=== PATIENT | male | born 1975 | race African-American/Black ===

== ENCOUNTER 2024-12-10 09:19 | Emergency (ER) | payer OTHER ==
--- OUTSIDE RECORDS SUMMARY | 2024-12-10 09:29 | XMS REPORT | Continuity of Care Document ---
Author Name Unknown Address [address] [place] [address] [facility] Address [address] [place] [address] Care Team Providers Care Academic Director Name Role Phone PCP, PATIENT DOES NOT HAVE A Primary Care Physic monae Unavailable Iheme, Nayan U Attending Clinician Unavailable Mechelle Heredia Attending Clinician UnavailBuck Joseph Attending Clinician UnavailTED Sebastian Attending Clinician UnavailLORENA Wasserman Attending Clinician Unavailable LUIGI TOBAR Attending Clinician Unavailable Marleen Navarro Attending Clinician [phone] Luigi oTbar MD Attending Clinician [phone] LARA RASCON Attending Clinician Unavailable Lara Rascon NP Attending Clinician [phone] Stewart RN, Chriss Attending Clinician Unavailab le Only, Ang Db Test Attending Clinician UnavailSylvie Celestin Attending Clinician [phone] SYLVIE HARRIS Attending Clinician Unavailable MARY ELLEN, K PEG Attending Clinician Unavailable Doctor Unassigned, Levasy Attending Clinician U keishaailable DONAVAN RAI Attending Clinician Unavailable Evelin Lane DO Attending Clinician [phone] Donavan Graf Attending Clinician [phone] Martin NORIEGA, Ashley Attending Clinician [phone] ASHLEY SALAZAR Attending Clinician Unavailable Fritz FIGUEROA, Diana Mena Attending Clinician Unavailab JADEN Dogulass Attending Clinician UnavailJaden Deleon Attending Clinician [phone] Olvin Persaud MD Attending Clinician [phone] OLVIN PERSAUD Attending Clinician Unavailable Jacqueline Barahona Admitting Clinician Unapriya mercado Physician, No Primary or Family Admitting Clinic monae Unavailable Buck Howard Admitting Clinician UnavailLUIGI Bethea Admitting Clinician Unavailable Amadou NORIEGA, Luigi Admitting Clinician [phone] OLVIN PERSAUD Admitting Clinician Unavailable Payers Payer Name Policy Type Policy Number Effective Date Expirati on Date Source [id number] 2021 00:00:00 Problems Condition Name Condition Details Condition Category Status Onset Date Resolution Date Last Treatment Date Treating Clinician Comments Source Chest pain, unspecifie d type Chest pain, unspecifie d type Disease Active 06-08 00:00: 00 [facility] Morbid obesity with body mass index of 40.0-49.9 Morbid obesity with body mass index of 40.0-49.9 Disease Active 06-08 00:00: 00 [facility] Essential hypertensi on, benign Essential hypertensi on, benign Disease Active 05-27 00:00: 00 [facility] Tobacco abuse Tobacco abuse Disease Active 05-27 00:00: 00 [facility] Allergies, Adverse Reactions, Alerts Allergy Name Allergy Type Status Severity Reaction(s) Onset Date Inactive Date Treating Clinician Comments Source No Known Allergie s DA Active U 05-28 00:00: 00 [facility] No Known Allergie s DA Active U 3-04 00:00: 00 [facility] NO KNOWN ALLERGIE S Drug Class Active [facility] Social History Social Habit Start Date Stop Date Quantity Comments Source History of tobacco use Passive smoker [facility] Alcohol intake 2022-06-09 00:00:00 2022-06-09 00:00:00 Ex-drinker (finding) [facility] Exposure to SARS-CoV-2 (event) 2022-05-29 00:00:00 2022-06-08 15:36:00 Not sure [facility] Tobacco use and exposure 2022-06-08 00:00:00 2022-06-08 00:00:00 Smokeless tobacco non-user [facility] Tobacco Comment 2022-06-08 00:00:00 2022-06-08 00:00:00 1 ppd [facility] Sex Assigned At 1975 00:00:00 1975 00:00:00 [facility] Smoking Status Start Date Stop Date Source Smokes tobacco daily 2022-06-08 00:00:00 [facility] Medications Ordered Medication Name Filled Medication Name Start Date Stop Date Current Medication? Ordering Clinician Indication Dosage Frequency Signature (SIG) Comments Components Source atorvastati n (LIPITOR) tablet 40 mg 06-10 02:00: 00 Yes 40mg 40 mg, Oral, QHS, First dose on Wed06/09/22 at 2100, Until Discontinu ed, Routine [facility] hydroCHLORO thiazide 25 mg tablet 06-10 00:00: 00 07-11 04:59 :00 No [id number] 25mg Take 1 tablet by mouth in the morning for 30 days. [facility] metoprolol succinate XL 25 mg 24 hr tablet 06-10 00:00: 00 07-11 04:59 :00 No [id number] 25mg Take 1 tablet by mouth in the morning for 30 days. [facility] sulfur hexafluorid e microsphr (LUMASON) injection 5 mL 06-09 16:15: 00 06-09 16:15 :00 No [id number] 5mL 5 mL, Intravenou s, ONCE, 1 dose, On Wed06/09/22 at 1115, Routine
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 Restricted medication : LORENA PRESTON [facility] enoxaparin (LOVENOX) injection 40 mg 06-09 14:00: 00 Yes 40mg 40 mg, Subcutaneo us, DAILY, First dose on Wed06/09/22 at 0900, Until Discontinu ed, Routine [facility] metoprolol succinate XL (TOPROL XL) tablet 25 mg 06-09 13:15: 00 Yes 25mg 25 mg, Oral, DAILY, First dose on Wed06/09/22 at 0815, Until Discontinu ed, Routine [facility] hydroCHLORO thiazide (ESIDRIX) tablet 25 mg 06-09 05:00: 00 Yes 25mg 25 mg, Oral, DAILY, First dose on Wed06/09/22 at 0000, Until Discontinu ed, Routine [facility] amLODIPine (NORVASC) tablet 5 mg 06-09 05:00: 00 Yes 5mg 5 mg, Oral, BID, First dose on Wed06/09/22 at 0000, Until Discontinu ed, Routine [facility] nitroglycer in (NITROSTAT) sublingual tablet 0.4 mg 06-09 03:21: 52 Yes .4mg 0.4 mg, Sublingual , Q5MIN PRN, Starting on Wed06/08/22 at 2221, Until Discontinu ed, Routine, Chest pain [facility] ondansetron (ZOFRAN (PF)) injection 4 mg 06-09 03:19: 34 Yes 4mg 4 mg, Slow IV Push, Q6HPRN, Starting on Wed06/08/22 at 2219, Until Discontinu ed, Routine, Nausea and Vomiting (N/V) [facility] morpHINE (4 mg/mL) injection 4 mg 06-09 03:19: 31 06-10 03:18 :31 No 4mg 4 mg, Slow IV Push, Q4HPRN, Starting on Wed06/08/22 at 2219, Until Wed06/09/22 at 2218, Routine, Pain (scale 7-10) [facility] HYDROcodone -acetaminop hen (NORCO 5) 5-325 mg tablet 1 tablet 06-09 03:19: 29 06-11 03:18 :29 No 1{tbl} 1 tablet, Oral, Q6HPRN, Starting on Wed06/08/22 at 2219, Until Wed06/10/22 at 2218, Routine, Pain (scale 4-6) [facility] acetaminoph en (TYLENOL) tablet 650 mg 06-09 03:19: 27 Yes 650mg 650 mg, Oral, Q6HPRN, Starting on Wed06/08/22 at 2219, Until Discontinu ed, Routine, Pain (scale 1-3) [facility] hydralAZINE (APRESOLINE ) injection 10 mg 06-09 01:15: 00 06-09 01:11 :00 No 10mg 10 mg, Slow IV Push, ONCE, 1 dose, On Wed06/08/22 at 2015, CHON [facility] diphenhydrA MINE (BENADRYL) injection 25 mg 06-09 00:45: 00 06-08 23:57 :00 No 25mg 25 mg, Slow IV Push, ONCE, 1 dose, On Wed06/08/22 at 1945, STAT [facility] metoclopram alex HCl (REGLAN) injection 10 mg 06-09 00:45: 00 06-08 23:57 :00 No 10mg 10 mg, Slow IV Push, ONCE, 1 dose, On Wed06/08/22 at 1945, CHON [facility] nitroglycer in 0.4 mg sublingual tablet 06-09 00:00: [id number] 1 tablet under the tongue every 5 (five) minutes as needed for Chest pain. [facility] amLODIPine 5 mg tablet 06-09 00:00: 00 2022- 09-30 04:59 :00 No [id number] 5mg Take 1 tablet by mouth in the morning and 1 tablet in the evening. Do all this for 30 days. [facility] atorvastati n 40 mg tablet 06-09 00:00: 00 07-10 04:59 :00 No [id number] 40mg Take 1 tablet by mouth at bedtime for 30 days. [facility] maalox:diph enhydrAMINE :lidocaine 2 % viscous 1:1:1 (FIRST-MOUT HWASH BLM) oral suspension 15 mL 06-08 23:15: 00 06-08 22:36 :00 No 15mL 15 mL, Oral (Swish & Swallow), ONCE, 1 dose, On Wed06/08/22 at 1815, Routine [facility] ondansetron (ZOFRAN (PF)) injection 4 mg 06-08 23:15: 00 06-08 22:20 :00 No 4mg 4 mg, Slow IV Push, ONCE, 1 dose, On Wed06/08/22 at 1815, CHON [facility] aspirin chewable tablet 324 mg 06-08 22:45: 00 06-08 21:44 :00 No 324mg 324 mg, Oral, ONCE, 1 dose, On Wed06/08/22 at 1745, Routine [facility] famotidine (PEPCID (PF)) injection 20 mg 06-08 22:15: 00 06-08 22:21 :00 No 20mg 20 mg, Slow IV Push, ONCE, 1 dose, On Wed06/08/22 at 1715, CHON [facility] hydralAZINE (APRESOLINE ) injection 10 mg 06-08 22:00: 00 06-08 21:58 :00 No 10mg 10 mg, Slow IV Push, ONCE, 1 dose, On Wed06/08/22 at 1700, CHON [facility] nitroglycer in (NITROSTAT) sublingual tablet 0.4 mg 06-08 21:45: 00 2022- 08-29 21:44 :00 No .4mg 0.4 mg, Sublingual , ONCE, 1 dose, On Wed06/08/22 at 1645, CHON [facility] sodium chloride (NS) injection 5 mL 06-08 20:59: 23 Yes 5mL 5 mL, Intravenou s, PRN, Starting on Wed06/08/22 at 1559, Until Discontinu ed, Routine, IV line flushing [facility] ketorolac (TORADOL) injection 30 mg 04-27 01:45: 00 04-27 00:41 :00 No 30mg 30 mg, Intramuscu lar, ONCE, 1 dose, On Wed04/26/22 at 2045, CHON [facility] ibuprofen 600 mg tablet 04-26 00:00: 00 06-09 00:00 :00 No [id number] 600mg Take 1 tablet by mouth every 6 (six) hours as needed for Pain (scale 4-6). [facility] benzonatate 200 mg capsule 04-26 00:00: 00 06-09 00:00 :00 No [id number] 200mg Take 1 capsule by mouth 3 (three) times daily as needed for Cough for up to 20 doses. [facility] ondansetron 4 mg disintegrat ing tablet 04-26 00:00: 00 06-09 00:00 :00 No [id number] 4mg Take 1 tablet by mouth every 8 (eight) hours as needed for Nausea and Vomiting (N/V). [facility] guaiFENesin 400 mg tablet 2020-10 00:00: 00 06-09 00:00 :00 No [id number] 400mg Take 1 tablet by mouth every 4 (four) hours as needed for Cough. [facility] benzonatate 100 mg capsule 2020-10 00:00: 00 06-09 00:00 :00 No [id number] 200mg Take 2 capsules by mouth 2 (two) times daily as needed for Cough. [facility] iopamidol (ISOVUE 370-500 mL) injection 120 mL 04-15 02:55: 00 04-15 03:00 :00 No [id number] 120mL 120 mL, Intravenou s, ONCE, 1 dose, Wed04/14/21 at 2200, Routine [facility] dicyclomine (BENTYL) injection 20 mg 04-15 02:45: 00 04-15 01:45 :00 No 20mg 20 mg, Intramuscu lar, ONCE, 1 dose, Wed04/14/21 at 2145, Routine [facility] ondansetron (ZOFRAN (PF)) injection 4 mg 04-15 02:15: 00 04-15 01:16 :00 No 4mg 4 mg, Slow IV Push, ONCE, 1 dose, Wed04/14/21 at 2115, CHON [facility] morpHINE injection 4 mg 04-15 02:15: 00 04-15 01:15 :00 No 4mg 4 mg, Slow IV Push, ONCE, 1 dose, Wed04/14/21 at 2115, STAT [facility] dicyclomine 20 mg tablet 04-14 00:00: 00 06-09 00:00 :00 No [id number] 20mg Take 1 tablet by mouth every 6 (six) hours as needed for Abdominal pain. [facility] ondansetron (ZOFRAN) 4 mg tablet 04-14 00:00: 00 06-09 00:00 :00 No [id number] 4mg Take 1 tablet by mouth every 8 (eight) hours as needed for Nausea and Vomiting (N/V). [facility] traMADoL (ULTRAM) 50 mg tablet 04-14 00:00: 00 06-09 00:00 :00 No [id number] 50mg Take 1 tablet by mouth every 6 (six) hours as needed for Pain (scale 7-10). Indication s: acute pain [facility] diazePAM (VALIUM) injection 5 mg 2019-10 0 04:53: 00 07-27 04:55 :00 No 5mg 5 mg, Slow IV Push, ONCE, 1 dose, 07/28/20 at 0000, STAT [facility] ketorolac (TORADOL) injection 30 mg 2019-10 04:52: 00 07-27 04:54 :00 No 30mg 30 mg, Slow IV Push, ONCE, 1 dose, 07/28/20 at 0000, CHON
Fa culty member approving Restricted medication : OLVIN PERSAUD [facility] FENTanyl PF (SUBLIMAZE (PF)) injection 75 mcg 2019-10 04:30: 00 07-27 03:49 :00 No 75ug 75 mcg, Slow IV Push, ONCE, 1 dose, 07/26/20 at 2330, Routine [facility] traMADoL (ULTRAM) 50 mg tablet 2019-10 00:00: 00 06-09 00:00 :00 No [id number] 50mg Take 1 tablet by mouth every 6 (six) hours as needed for Pain (scale 7-10). Indication s: acute pain [facility] methocarbam oL (ROBAXIN-75 0) 750 mg tablet 2019-10 00:00: 06-09 00:00 :00 No [id number] 750mg Take 1 tablet by mouth 4 (four) times daily. [facility] dextrometho rphan-guaif enesin (ROBITUSSIN DM) 10-100 mg/5 mL solution 5 mL 11-20 08:00: 11-20 07:00 :00 No 5mL 5 mL, Oral, ONCE, 1 dose, 11/20/19 at 0200, Routine [facility] albuterol 90 mcg/actuati on inhaler 11-20 00:00: 00 Yes [id number] 2{puff} Inhale 2 Puffs every 4 (four) hours as needed for Wheezing, Shortness of Breath, Bronchospa sm or Chest tightness. [facility] codeine-gua ifenesin 10-100 mg/5 mL solution 11-20 00:00: 00 06-09 00:00 :00 No [id number] 5mL Take 5 mL by mouth every 6 (six) hours as needed for Cough. [facility] ibuprofen 800 mg tablet 2-10 00:00: 06-09 00:00 :00 No [id number] 800mg Take 1 tablet by mouth every 8 (eight) hours as needed for Pain (scale 4-6) or Temp > 38.5 C. [facility] naproxen sodium (ANAPROX DS) 550 mg tablet 05-02 00:00: 00 06-09 00:00 :00 No [id number] 550mg Take 1 tablet by mouth 2 (two) times daily with meals. [facility] ibuprofen (MOTRIN IB) 200 mg tablet 1-06 00:00: 00 06-09 00:00 :00 No 400mg Take 2 tablets by mouth every 6 (six) hours as needed for Pain (scale 1-3) for up to 30 doses. [facility] lisinopril 20 mg tablet 8-17 00:00: 00 06-09 00:00 :00 No [id number] 20mg Take 1 tablet by mouth daily. [facility] lisinopril 10 mg tablet 04-18 00:00: 00 06-09 00:00 :00 No 20mg Take 2 tablets by mouth at bedtime. [facility] Vital Signs Vital Name Observation Time Observation Value Comments S liborio Systolic blood pressure 2022-06-09 16:07:00 146 mm[Hg] [facility] Diastolic blood pressure 2022-06-09 16:07:00 89 mm[Hg] [facility] Heart rate 2022-06-09 16:07:00 61 /min [facility] Body temperature 2022-06-09 16:07:00 36.44 [place] [facility] Respiratory rate 2022-06-09 16:07:00 18 /min [facility] Oxygen saturation in Arterial blood by Pulse oximetry 2022-06-09 16:07:00 96 /min [facility] Body height 2022-06-09 03:09:00 188 cm [facility] Body weight 2022-06-09 03:09:00 162.932 kg [facility] BMI 2022-06-09 03:09:00 46.12 kg/m2 [facility] Systolic blood pressure 2022-04-30 19:56:00 157 mm[Hg] [facility] Diastolic blood pressure 2022-04-30 19:56:00 118 mm[Hg] [facility] Heart rate 2022-04-30 19:56:00 61 /min [facility] Body temperature 2022-04-30 19:56:00 37 [place] [facility] Respiratory rate 2022-04-30 19:56:00 18 /min [facility] Body height 2022-04-30 19:56:00 188 cm [facility] Body weight 2022-04-30 19:56:00 158.759 kg [facility] BMI 2022-04-30 19:56:00 44.94 kg/m2 [facility] Oxygen saturation in Arterial blood by Pulse oximetry 2022-04-30 19:56:00 98 /min [facility] Systolic blood pressure 2022-04-27 01:20:47 173 mm[Hg] [facility] Diastolic blood pressure 2022-04-27 01:20:47 104 mm[Hg] [facility] Heart rate 2022-04-27 01:20:47 71 /min [facility] Body temperature 2022-04-27 01:20:47 36.94 [place] [facility] Respiratory rate 2022-04-27 01:20:47 18 /min [facility] Oxygen saturation in Arterial blood by Pulse oximetry 2022-04-27 01:20:47 97 /min [facility] Body height 2022-04-27 00:03:00 188 cm [facility] Body weight 2022-04-27 00:03:00 158.759 kg [facility] BMI 2022-04-27 00:03:00 44.94 kg/m2 [facility] Systolic blood pressure 2022-04-18 16:02:00 123 mm[Hg] [facility] Diastolic blood pressure 2022-04-18 16:02:00 89 mm[Hg] [facility] Heart rate 2022-04-18 16:02:00 77 /min [facility] Respiratory rate 2022-04-18 16:02:00 16 /min [facility] Body height 2022-04-18 16:02:00 188 cm [facility] Body weight 2022-04-18 16:02:00 156.945 kg [facility] BMI 2022-04-18 16:02:00 44.42 kg/m2 [facility] Systolic blood pressure 2021-09-01 17:44:00 155 mm[Hg] [facility] Diastolic blood pressure 2021-09-01 17:44:00 83 mm[Hg] [facility] Heart rate 2021-09-01 17:40:00 65 /min [facility] Body temperature 2021-09-01 17:40:00 36.72 [place] [facility] Respiratory rate 2021-09-01 17:40:00 18 /min [facility] Body weight 2021-09-01 17:40:00 164.111 kg [facility] BMI 2021-09-01 17:40:00 46.45 kg/m2 [facility] Oxygen saturation in Arterial blood by Pulse oximetry 2021-09-01 17:40:00 98 /min [facility] Systolic blood pressure 2021-06-09 20:28:46 150 mm[Hg] [facility] Diastolic blood pressure 2021-06-09 20:28:46 99 mm[Hg] [facility] Heart rate 2021-06-09 18:31:00 69 /min [facility] Body temperature 2021-06-09 18:31:00 37.17 [place] [facility] Respiratory rate 2021-06-09 18:31:00 18 /min [facility] Body weight 2021-06-09 18:31:00 163.295 kg [facility] BMI 2021-06-09 18:31:00 46.22 kg/m2 [facility] Oxygen saturation in Arterial blood by Pulse oximetry 2021-06-09 18:31:00 98 /min [facility] Systolic blood pressure 2021-04-15 03:00:00 150 mm[Hg] [facility] Diastolic blood pressure 2021-04-15 03:00:00 92 mm[Hg] [facility] Heart rate 2021-04-15 03:00:00 72 /min [facility] Oxygen saturation in Arterial blood by Pulse oximetry 2021-04-15 03:00:00 98 /min [facility] Body temperature 2021-04-15 00:51:00 37 [place] [facility] Respiratory rate 2021-04-15 00:51:00 18 /min [facility] Body height 2021-04-15 00:51:00 188 cm [facility] Body weight 2021-04-15 00:51:00 163.295 kg [facility] BMI 2021-04-15 00:51:00 46.22 kg/m2 [facility] Systolic blood pressure 2020-07-27 05:22:00 154 mm[Hg] [facility] Diastolic blood pressure 2020-07-27 05:22:00 94 mm[Hg] [facility] Heart rate 2020-07-27 05:22:00 70 /min [facility] Respiratory rate 2020-07-27 05:22:00 18 /min [facility] Oxygen saturation in Arterial blood by Pulse oximetry 2020-07-27 05:22:00 90 /min [facility] Body temperature 2020-07-27 03:13:00 36.5 [place] [facility] Body height 2020-07-27 03:13:00 188 cm [facility] Body weight 2020-07-27 03:13:00 154.223 kg [facility] BMI 2020-07-27 03:13:00 43.65 kg/m2 [facility] Systolic blood pressure 2019-11-20 06:27:00 165 mm[Hg] [facility] Diastolic blood pressure 2019-11-20 06:27:00 97 mm[Hg] [facility] Heart rate 2019-11-20 06:27:00 66 /min [facility] Body temperature 2019-11-20 06:27:00 36.78 [place] [facility] Respiratory rate 2019-11-20 06:27:00 18 /min [facility] Body height 2019-11-20 06:27:00 185.4 cm [facility] Body weight 2019-11-20 06:27:00 154.223 kg [facility] BMI 2019-11-20 06:27:00 44.86 kg/m2 [facility] Oxygen saturation in Arterial blood by Pulse oximetry 2019-11-20 06:27:00 96 /min [facility] Procedures Procedure Date / Time Performed Performing Clinician Source TRANSTHORACIC ECHO (TTE) COMPLETE W/ CONTRAST 2022-06-09 14:30:00 Amadou [facility] MAGNESIUM 2022-06-09 08:48:00 Amadou [facility] TROPONIN I 2022-06-09 08:48:00 Amadou [facility] BASIC METABOLIC PANEL (NA, K, CL, CO2, GLUCOSE, BUN, CREATININE, CA) 2022-06-09 08:48:00 Amadou [facility] LIPID PANEL ([id number])(TOTAL CHOLESTEROL, TRIGLYCERIDES, HDL) 2022-06-09 08:48:00 Amadou [facility] TROPONIN I 2022-06-09 04:31:00 Amadou [facility] COVID-19 (ID NOW RAPID TESTING) 2022-06-09 01:47:00 Olvin Persaud [facility] TROPONIN I 2022-06-09 00:03:00 [facility] THYROID STIMULATING HORMONE 2022-06-09 00:03:00 Luigi Tobar [facility] LIPASE 2022-06-08 21:20:00 Marleen Hyde [facility] TROPONIN I 2022-06-08 21:20:00 Marleen Hyde [facility] COMP. METABOLIC PANEL ([id number]) 2022-06-08 21:20:00 Marleen Hyde [facility] CBC WITH DIFF 2022-06-08 21:20:00 Marleen Hyde [facility] GLYCOSYLATED HEMOGLOBIN (A1C) 2022-06-08 21:20:00 Luigi Tobar [facility] PROTHROMBIN TIME / INR 2022-06-08 21:20:00 Marleen Hyde [facility] D-DIMER 2022-06-08 21:20:00 [facility] ACTIVATED PARTIAL THRMPLAS BEE 2022-06-08 21:20:00 Marleen Hyde [facility] XR CHEST 1 VW 2022-06-08 21:10:27 Marleen Hyde [facility] HB ECG ROUTINE & RHYTHM STRIP 2022-06-08 20:36:02 Marleen Hyde [facility] CONSENT/REFUSAL FOR DIAGNOSIS AND TREATMENT 2022-06-08 20:31:09 Doctor Unassigned, Levasy [facility] RAPID INFLUENZA A/B 2022-04-30 20:01:00 Lara Rascon [facility] CONSENT/REFUSAL FOR DIAGNOSIS AND TREATMENT 2022-04-30 19:42:26 Doctor Unassigned, Levasy [facility] COVID-19 (ID NOW RAPID TESTING) 2022-04-27 00:39:00 Marleen Hyde [facility] NOTICE OF PRIVACY PRACTICES 2022-04-26 23:51:44 Doctor Unassigned, Levasy [facility] CONSENT/REFUSAL FOR DIAGNOSIS AND TREATMENT 2022-04-26 23:51:06 Doctor Unassigned, Levasy [facility] CONSENT/REFUSAL FOR DIAGNOSIS AND TREATMENT 2022-04-18 15:45:18 Doctor Unassigned, Levasy [facility] ASSIGNMENT OF BENEFITS 2021-06-09 19:30:14 Docto r Unassigned, Levasy [facility] COVID-19 (ID NOW RAPID TESTING) 2021-06-09 18:36:[address] [facility] CONSENT/REFUSAL FOR DIAGNOSIS AND TREATMENT 2021-06-09 18:22:40 Doctor Unassigned, Levasy [facility] CT ABDOMEN PELVIS W CONTRAST 2021-04-15 01:59:07 Olvin Persaud [facility] URINALYSIS 2021-04-15 01:47:00 Olvin Persaud [facility] LIPASE 2021-04-15 01:15:00 Olvin Persaud [facility] COMP. METABOLIC PANEL ([id number]) 2021-04-15 01:15:00 Olvin Persaud [facility] CBC WITH DIFF 2021-04-15 01:15:00 Olvin Persaud [facility] NOTICE OF PRIVACY PRACTICES 2021-04-15 00:48:26 Doctor Unassigned, Levasy [facility] CONSENT/REFUSAL FOR DIAGNOSIS AND TREATMENT 2021-04-15 00:46:10 Doctor Unassigned, Levasy [facility] CT CERVICAL SPINE WO CONTRAST 2020-07-27 04:01:58 Olvin Persaud [facility] CT HEAD WO CONTRAST 2020-07-27 04:01:58 Olvin Persaud [facility] XR CHEST 1 VW 2019-11-20 06:57:17 Olvin Persaud [facility] Encounters Start Date/Time End Date/Time Encounter Type Admission Type Attending [facility] Care Department Encounter ID Source 2021-08-11 19:04:41 Emergency [facility] [id number] [facility] 2021-08-11 06:07:12 Emergency [facility] [id number] [facility] 2021-08-08 23:30:59 Emergency [facility] [id number] [facility] 2024-07-04 10:07:00 2024-07-04 11:15:00 Emergency EM Nayan Liang [facility] [id number] [facility] 2024-05-28 10:01:00 2024-05-28 10:47:00 Emergency EM Mechelle Heredia [facility] [id number] [facility] 2023-12-14 12:27:00 2023-12-15 17:06:00 Inpatient EM Buck Howard [facility] [id number] [facility] 2022-08-07 10:00:00 2022-08-07 10:00:00 Outpatient R KARYALEXISMONIKAJAMA [facility] [id number] [facility] 2022-07-03 10:00:00 2022-07-03 10:00:00 Outpatient R TED ENRIQUE [facility] [id number] [facility] 2022-06-08 15:45:00 2022-06-09 15:22:00 Outpatient X LUIGI TOBAR [facility] [id number] [facility] 2022-06-08 15:45:00 2022-06-09 15:22:00 Emergency Marleen [facility] [id number] 350.1.13.10 4.2.7.2.686 [id number] [facility] 2022-04-30 15:02:00 2022-04-30 17:20:00 Emergency X CHARISSALARA VELASCO [facility] ERT [id number] [facility] 2022-04-30 15:02:00 2022-04-30 17:20:00 Emergency Lara Rascon Kyle [facility] [id number] 350.1.13.10 4.2.7.2.686 [id number] [facility] 2022-04-30 00:00:00 2022-04-30 00:00:00 Letter (Out) Chriss William [facility] [id number] 350.1.13.10 4.2.7.2.686 [id number] [facility] 2022-04-29 10:45:00 2022-04-29 11:00:00 Laboratory Only Only, Ang Db Test [facility] [id number] 350.1.13.10 4.2.7.2.686 [id number] [facility] 2022-04-29 10:45:00 2022-04-29 10:30:51 Outpatient R ROBERTO [facility] [id number] [facility] 2022-04-26 19:07:00 2022-04-26 21:11:00 Emergency X Marleen HYDE [facility] ERT [id number] [facility] 2022-04-26 19:07:00 2022-04-26 21:11:00 Emergency Marleen Hyde [facility] 1.84114 350.1.13.10 4.2.7.2.686 [id number] [facility] 2022-04-26 00:00:00 2022-04-26 00:00:00 Orders Only Doctor Unassigned, Levasy [facility] 1.114 350.1.13.10 4.2.7.2.686 [id number] [facility] 2022-04-18 11:08:00 2022-04-18 11:28:00 Emergency X DONAVAN RAI [facility] ERT [id number] [facility] 2022-04-18 11:08:00 2022-04-18 11:28:[address] Roxanne [facility] 1.84114 350.1.13.10 4.2.7.2.686 [id number] [facility] 2022-04-17 20:45:00 2022-04-17 21:00:00 Laboratory Only Only, Ang Db Test Ashley Salazar [facility] 1.840.114 350.1.13.10 4.2.7.2.686 [id number] [facility] 2022-04-17 20:45:00 2022-04-17 20:53:16 Outpatient R ASHLEY SALAZAR [facility] [id number] [facility] 2021-09-01 11:40:00 2021-09-01 12:00:19 Outpatient R MARTIN [facility] [id number] [facility] 2021-09-01 11:30:09 2021-09-01 12:00:19 Urgent Care [facility] 1.84114 350.1.13.10 4.2.7.2.686 [id number] [facility] 2021-06-10 00:00:00 2021-06-10 00:00:00 Letter (Out) Diana Hu [facility] 1.84.114 350.1.13.10 4.2.7.2.686 [id number] [facility] 2021-06-09 13:57:00 2021-06-09 15:32:[address] [facility] 1.2.840.114 350.1.13.10 4.2.7.2.686 [id number] [facility] 2021-06-09 12:25:00 2021-06-09 12:25:00 [facility] [id number] [facility] 2021-06-09 11:35:03 2021-06-09 11:45:03 Laboratory Only Only, Ang Db Test Joleen, [facility] 1.2.840.114 350.1.13.10 4.2.7.2.686 [id number] [facility] 2021-04-14 19:53:00 2021-04-14 22:21:00 [facility] 1.2.840.114 350.1.13.10 4.2.7.2.686 [id number] [facility] 2020-07-26 22:07:00 2020-07-27 00:31:00 [facility] 1.2.840.114 350.1.13.10 4.2.7.2.686 [id number] [facility] 2019-11-20 00:30:01 2019-11-20 01:48:00 [facility] 1.2.840.114 350.1.13.10 4.2.7.2.686 [id number] [facility] 2019-11-20 00:30:01 2019-11-20 01:48:00 [facility] [id number] [facility] Results Test Description Test Time Test Comments Results Result Co mments Source LOC-[place] [facility], [address] [place], [place], [id number] BLOOD COUNT (CBC)2024-07-04 10:44:00* Test Item Value Reference Range Interpretation Comme nts POC,WHITE BLOOD CELL (test c ode = EDWBC) 12.5 10 3/uL 4.0-10.5 H POC,RED BLOOD CELL (test cod e = EDRBC) 4.83 10 6/uL 4.63-6.08 N POC,HEMOGLOBIN (test code = EDHGB) 13.9 g/dL 13.7-17.5 N POC,HEMATOCRIT (test code = EDHCT) 42.8 % 40.1-51.0 N POC,MEAN CELL VOLUME (test c ode = EDMCV) 88.6 fL 79.4-94.8 N POC,MEAN CELL HEMOGLOBIN (te st code = EDMCH) 28.8 pg 25.7-32.2 N POC,MEAN CELL HGB CONC (test code = EDMCHC) 32.5 g/dL 32.3-36.5 N POC,PLATELET COUNT (test cod e = EDPLT) 229 10 3/uL 150-400 N POC,RED CELL DISTRIB WIDTH ( test code = EDRDW) 15.6 % 11.6-14.4 H POC,LYMPHOCYTES % (test code = EDLYM%) 37.5 % 21.8-53.1 N POC,MIXED CELLS % (test code = EDMXD%) 5.5 % 1.9-24.6 N POC,NEUTROPHILS % (test code = EDNEUT%) 57.0 % 34.0-67.9 N POC,LYMPHOCYTES # (test code = EDLYM#) 4.70 10 3/uL 1.32-3.57 H POC,MIXED CELLS # (test code = EDMXD#) 0.7 10 3/uL 0.1-1.5 N POC,NEUTROPHILS # (test code = EDNEUT#) 7.10 10 3/uL 1.78-5.38 H POC,MEAN PLATELET VOLUME (te st code = EDMPV) 9.2 fL 9.4-12.3 L [facility], [address] [place], [place], [id number] AUTOMATED 2024-07-04 10:39:00* Test Item Value Reference Range Interpretation Comme nts POC,URINE COLOR (test code = EDCOLU) [place] Yellow A Substances that cause abnormal urine color may affect thereadability of test pads on the urinalysis reagent strips.These substances include visible levels of blood orbilirubin and drugs containing dyes, nitrofurantoin, orriboflavin. POC,URINE CLARITY (test code = EDCLARITY) Clear Clear POC,URINE GLUCOSE (test code = EDGLUU) Negative Negative POC,URINE BILIRUBIN (test code = EDBILIU) Small Negative A POC,URINE KETONES (test code = EDKETU) Negative Negative POC,URINE SPECIFIC GRAVITY (test code = EDSGU) >= 1.030 1.001-1.035 N POC,URINE BLOOD (test code = EDBLDU) Negative Negative POC,URINE pH (test code = EDPH) 5.5 5.0-8.0 N POC,URINE PROTEIN (test code = EDPROTU) 30 Negative A POC,URINE UROBILINOGEN (test code = EDURO) 0.2 E.U/dL 0.2-1.0 POC,URINE NITRITE (test code = EDNIT) Negative Negative POC,URINE LEUKOCYTE ESTERASE (test code = EDLEUK) Negative Negative LOC-[facility], [address] [place], [place], [id number] A B ANTIGEN 2024-05-28 10:36:00* Test Item Value Reference Range Interpretation Comme [facility] POC,INFLUENZA A ANTIGEN (test code = EDINFLAGA) Negative Negative POC,INFLUENZA B ANTIGEN (test code = EDINFLAGB) Negative Negative Testing Performe d at:[facility] [id number] [place] [address] [facility] [id number] y. [address] [place] [address], [id number],COVID [id number] 10:35:00* Test Item Value Reference Range Interpretation Comme [facility] POC,COVID AG (test code = [id number]) Negative Negative Testing Perfo rmed at:[facility] [id number] [place] [address] [facility], [address] [place] [address], [id number],STREP GROUP A AG [id number] 10:25:00* Test Item Value Reference Range Interpretation Comme [facility] POC,STREP GROUP A AG QUAL (test code = EDSTREP) Negative Negative Testing Performe d at:[facility] [id number] [place] [address] [facility], [address] [place] [address], [id number] AUTOMATED 2024-01-05 13:46:00* Test Item Value Reference Range Interpretation Comme nts POC,URINE COLOR (test code = EDCOLU) Yellow Yellow POC URINE CLARITY (test code = EDCLARITY) Clear Clear POC,URINE GLUCOSE (test code = EDGLUU) Negative Negative POC,URINE BILIRUBIN (test co de = EDBILIU) Negative Negative POC,URINE KETONES (test code = EDKETU) Negative Negative POC,URINE SPECIFIC GRAVITY ( test code = EDSGU) 1.015 1.001-1.035 N POC,URINE BLOOD (test code = EDBLDU) Trace-intact Negative A POC,URINE pH (test code = EDPH) 6.0 5.0-8.0 N POC,URINE PROTEIN (test code = EDPROTU) Negative Negative POC,URINE UROBILINOGEN (test code = EDURO) 0.2 0.2-1.0 POC,URINE NITRITE (test code = EDNIT) Negative Negative POC,URINE LEUKOCYTE ESTERASE (test code = EDLEUK) Negative Negative CBC W/AUTO [id number] 13:45:00* Test Item Value Reference Range Interpretation Comme nts WHITE BLOOD CELL (test code = WBC) 15.9 10E9/L 3.5-10.0 H RED BLOOD CELL (test code = RBC) 4.8 10E12/L 3.3-5.5 N HEMOGLOBIN (test code = HGB) 13.7 g/dL 11.5-16.5 N HEMATOCRIT (test code = HCT) 41.0 % 35-55 N MEAN CELL VOLUME (test code = MCV) 85.7 fL 75-100 N MEAN CELL HGB (test code = MCH) 28.7 pg 25-35 N MEAN CELL HGB CONCETRATION ( test code = MCHC) 28.7 % 31-38 L RED CELL DISTRIBUTION WIDTH (test code = RDW) 12.0 % 11.0-16.0 N PLATELET COUNT (test code = PLT) 184 10E9/L 100-400 N MEAN PLATELET VOLUME (test c ode = MPV) 8.7 fL 8-11 N NEUTROPHIL % (test code = NT%) 73.1 % 35-80 N LYMPHOCYTE % (test code = LY%) 20.5 % 15-50 N MIXED % (test code = MX%) 6.4 % 2.0-15.0 N NEUTROPHIL # (test code = NT#) 11.6 10E3/uL 1.2-8.0 H LYMPHOCYTE # (test code = LY#) 3.2 10E3/uL 0.5-5.0 N MIXED # (test code = MX#) 1.1 10E3/uL 0.0-1.5 N COMPREHENSIVE METABOLIC [id number] 13:44:00* Test Item Value Reference Range Interpretation Comme nts POC,SODIUM (test code = CARRIE) 141 mmol/L 128-145 N POC,POTASSIUM (test code = EDK) 3.4 mmol/L 3.6-5.1 L POC,CHLORIDE (test code = EDCL) 106 mmol/L 98-108 N POC,TCO2 (test code = EDTCO2) 31 mmol/L 18-33 N POC,ANION GAP (test code = EDAGAP) 4 mmol/L 4-14 N POC,BUN (test code = EDBUN) 13 mg/dL 7-22 N POC,CREATININE (test code = EDCRE) 1.3 mg/dL 0.6-1.2 H POC,GLUCOSE (test code = EDGLUC) 122 mg/dL 73-118 H POC,CALICIUM (test code = EDCA) 9.2 mg/dL 8.0-10.3 N POC,eGFR (test code = EDGFR) 68 mL/min >=60 eGFR is not calc ulated if age <18 yrs, if the sex in EHR islisted as unknown or the creatinine level is below assayrange.This result value is determined by the eGFR 2021 CKD-EPIformula using serum creatinine, age and sex, excluding arace coefficient. The assay for creatinine is traceable tothe IDSC reference method. Chronic kidney disease (CKD) maynot be detectable based solely on creatinine levels. A eGFR> 60 does not rule out mild renal disease. To distinguishnormal renal function from mild renal disease, furtherlaboratory testing may be required. POC,ALBUMIN (test code = EDALB) 3.7 g/dL 3.3-5.5 N POC,TOTAL PROTEIN (test code = EDTP) 7.2 g/dL 6.4-8.1 N POC,BILIRUBIN TOTAL (test code = EDTBIL) 1.0 mg/dL 0.2-1.6 N POC,AST (test code = EDAST) 37 U/L 11-38 N POC,ALT (test code = EDALT) 46 U/L 10-47 N POC,ALKALINE PHOSPHATASE (test code = EDALP) 90 U/L 53-128 N LACTIC ACID [id number] 13:44:00* Test Item Value Reference Range Interpretation Comme nts LACTIC ACID POC (test code = LACTP) 1.38 mmol/L 0.9-107 N POC VENOUS BLOOD [id number] 13:43:00* Test Item Value Reference Range Interpretation Comme nts POC VENOUS BLOOD GAS PH (david t code = POCPHV) 7.40 7.31-7.41 N POC VENOUS BLOOD GAS PCO2 (t est code = [id number]) 44.0 mm/Hg 41-51 N POC VENOUS BLOOD GAS PO2 (te st code = VYFCZ7P) 22 mm/Hg 30-40 L POC TCO2 VENOUS (test code = EDELVI2Q) 29 mmol/L 24-29 N POC HCO3 VENOUS (test code = RWQHQC6U) 27.5 mmol/L 23-28 N POC BASE EXCESS VENOUS (test code = POCBEV) 3 mmol/L -2-+3 N POC O2 SATURATION VENOUS (te st code = IGIP5UF) 38.0 % 50-80 L COMPREHENSIVE METABOLIC [id number] 07:17:00* Test Item Value Reference Range Interpretation Comme nts SODIUM (test code = NA) 139 MMOL/L 137-145 N POTASSIUM (test code = K) 3.8 MMOL/L 3.5-5.1 N CHLORIDE (test code = CL) 108 MMOL/L 98-107 H CARBON DIOXIDE (test code = CO2) 29 MMOL/L 22-30 N GLUCOSE (test code = GLU) 105 MG/DL 74-106 N BLOOD UREA NITROGEN (test code = BUN) 11 MG/DL 9-20 N GLOMERULAR FILTRATION RATE (test code = GFR) > 60 The Glomerular Filtration Rate is a calculated parameterbased on serum Creatinine, patient age and sex. GFR valuesless than 60 mL/min/1.73 square meters are indicative ofChronic Kidney Disease. Values less than 15 mL/min/1.73square meters indicate Kidney failure. The calculation forGFR is based on the CKD-EPI (2020) calculation. This formulais race indifferent and is the recommended formula for GFRby the National Kidney Foundation for Adults.The GFR will not calculate if the sex is unknown or if thepatient's age is <18 years. CREATININE (test code = CREAT) 0.90 MG/DL 0.66-1.25 N TOTAL PROTEIN (test code = PROT) 7.3 G/DL 6.2-7.6 N Ortho Clinical D iagnostic has made us aware of newinformation regarding the potential interference ofEltrombopag (a bone marrow stimulant used to treatthrombocytonmenia and aplastic anemia) with specific assayson the IM[employer]ests 5600 of which Total Protein is one of thoseassays performed in our lab.Interference testing performed at Ortho determined thatEltrombopag does interfere with Vitros Total Protein asfollowsEltrombopag Interference for Vitros Product Total Protein: Eltrombopag Max Observed Avg. BiasConcentration Concentration Concentration 2.5 mg/dl 6.0 g/dl +0.41 +0.34 3.5 mg/dl 6.0 g/dl +0.50 +0.45 5 mg/dl 6.0 g/dl +0.73 +0.65 2.5 mg/dl 8.0 g/dl +0.44 +0.41 3.5 mg/dl 8.0 g/dl +0.55 +0.52 5 mg/dl 8.0 g/dl +0.86 +0.77 ALBUMIN (test code = ALB) 4.0 G/DL 3.5-5.0 N CALCIUM (test code = CA) 8.9 MG/DL 8.4-10.2 N BILIRUBIN TOTAL (test code = BILT) 0.6 MG/DL 0.2-1.3 N Eltrombopag Inte rference for Vitros Product TBil, BuBc: Assay Eltrombopag Analyte/ Max Observed Avg. Bias Concentration Concentration Concentration TBil 7mg/dl TBil/ 1.2mg/dl +0.23mg.dl +0.20mg/dlBuBc 3.5mg/dl Bu/0.8mg/dl +0.25mg/dl +0.24mg/dlBuBc 7 mg/dl Bu/14.2mg/dl +0.38mg/dl +0.25mg/dlBuBc 5mg/dl Bc/0mg/dl +0.25mg/dl +0.15mg/dlBuBc 3.5mg/dl Bc/2.8mg/dl +0.25mg/dl +0.23mg/dl SGOT/AST (test code = AST) 52 UNITS/L 17-59 N SGPT/ALT (test code = ALT) 58 UNITS/L 0-49 H ALKALINE PHOSPHATASE (test code = ALKP) 127 UNITS/L 38-126 H CBC W/AUTO [id number] 06:50:00* Test Item Value Reference Range Interpretation Comme nts WHITE BLOOD CELL (test code = WBC) 11.8 K/MM3 3.8-9.8 H RED BLOOD CELL (test code = RBC) 4.59 M/MM3 3.95-5.67 N HEMOGLOBIN (test code = HGB) 13.0 G/DL 12.4-16.7 N HEMATOCRIT (test code = HCT) 39.0 % 35.9-49.5 N MEAN CELL VOLUME (test code = MCV) 85 fL 81.7-96.1 N MEAN CELL HGB (test code = MCH) 28.3 pg 27.6-33.2 N MEAN CELL HGB CONCETRATION (test code = MCHC) 33.3 % 32.9-35.5 N RED CELL DISTRIBUTION WIDTH (test code = RDW) 15.0 % 12.1-15.2 N PLATELET COUNT (test code = PLT) 205 K/MM3 129-368 N MEAN PLATELET VOLUME (test c ode = MPV) 10.0 fl 7.4-10.4 N NEUTROPHIL % (test code = NT%) 62.2 % 43-75 N IMMATURE GRANULOCYTE % (test code = IG%) 0.6 % 0.0-2.0 N LYMPHOCYTE % (test code = LY%) 24.9 % 14-44 N MONOCYTE % (test code = MO%) 8.3 % 4-13 N EOSINOPHIL % (test code = EO%) 3.7 % 0-6 N BASOPHIL % (test code = BA%) 0.3 % 0-2 N NUCLEATED RBC % (test code = NRBC%) 0.0 % 0-1.0 N NEUTROPHIL # (test code = NT#) 7.35 K/mm3 2.0-7.6 N IMMATURE GRANULOCYTE # (test code = IG#) 0.07 x10 3/uL 0-0.03 H LYMPHOCYTE # (test code = LY#) 2.94 K/mm3 1.0-3.8 N MONOCYTE # (test code = MO#) 0.98 K/mm3 0.1-0.8 H EOSINOPHIL # (test code = EO#) 0.44 K/mm3 0.0-0.2 H BASOPHIL # (test code = BA#) 0.04 K/mm3 0.0-0.2 N NUCLEATED RBC # (test code = NRBC#) 0.00 K/mm3 0.0-0.1 N GLUCOSE BEDSIDE [id number] 06:47:00* Test Item Value Reference Range Interpretation Comme nts GLUCOSE BEDSIDE TESTING (david t code = GLUBED) 100 MG/DL 60-99 H GLUCOSE BEDSIDE [id number] 18:42:00* Test Item Value Reference Range Interpretation Comme nts GLUCOSE BEDSIDE TESTING (david t code = GLUBED) 125 MG/DL 60-99 H [id number] 12:40:00* Test Item Value Reference Range Interpretation Comme nts PHOSPHOROUS (test code = PHOS) 2.3 MG/DL 2.5-4.5 L [id number] 12:40:00* Test Item Value Reference Range Interpretation Comme nts MAGNESIUM (test code = MAG) 2.2 MG/DL 1.6-2.3 N GLUCOSE BEDSIDE [id number] 11:12:00* Test Item Value Reference Range Interpretation Comme nts GLUCOSE BEDSIDE TESTING (david t code = GLUBED) 112 MG/DL 60-99 H COMPREHENSIVE METABOLIC [id number] 04:54:00* Test Item Value Reference Range Interpretation Comme nts SODIUM (test code = NA) 140 MMOL/L 137-145 N POTASSIUM (test code = K) 3.4 MMOL/L 3.5-5.1 L CHLORIDE (test code = CL) 107 MMOL/L 98-107 N CARBON DIOXIDE (test code = CO2) 33 MMOL/L 22-30 H ANION GAP (test code = GAP) 3 MMOL/L 14-24 L GLUCOSE (test code = GLU) 100 MG/DL 74-106 N BLOOD UREA NITROGEN (test code = BUN) 15 MG/DL 9-20 N GLOMERULAR FILTRATION RATE (test code = GFR) > 60 The Glomerular Filtration Rate is a calculated parameterbased on serum Creatinine, patient age and sex. GFR valuesless than 60 mL/min/1.73 square meters are indicative ofChronic Kidney Disease. Values less than 15 mL/min/1.73square meters indicate Kidney failure. The calculation forGFR is based on the CKD-EPI (2020) calculation. This formulais race indifferent and is the recommended formula for GFRby the National Kidney Foundation for Adults.The GFR will not calculate if the sex is unknown or if thepatient's age is <18 years. CREATININE (test code = CREAT) 1.20 MG/DL 0.66-1.25 N TOTAL PROTEIN (test code = PROT) 7.3 G/DL 6.2-7.6 N Ortho Clinical D iagnostic has made us aware of newinformation regarding the potential interference ofEltrombopag (a bone marrow stimulant used to treatthrombocytonmenia and aplastic anemia) with specific assayson the [employer] 5600 of which Total Protein is one of thoseassays performed in our lab.Interference testing performed at Ortho determined thatEltrombopag does interfere with Vitros Total Protein asfollowsEltrombopag Interference for Vitros Product Total Protein: Eltrombopag Max Observed Avg. BiasConcentration Concentration Concentration 2.5 mg/dl 6.0 g/dl +0.41 +0.34 3.5 mg/dl 6.0 g/dl +0.50 +0.45 5 mg/dl 6.0 g/dl +0.73 +0.65 2.5 mg/dl 8.0 g/dl +0.44 +0.41 3.5 mg/dl 8.0 g/dl +0.55 +0.52 5 mg/dl 8.0 g/dl +0.86 +0.77 ALBUMIN (test code = ALB) 3.9 G/DL 3.5-5.0 N CALCIUM (test code = CA) 9.0 MG/DL 8.4-10.2 N BILIRUBIN TOTAL (test code = BILT) 1.0 MG/DL 0.2-1.3 N Eltrombopag Inte rference for Vitros Product TBil, BuBc: Assay Eltrombopag Analyte/ Max Observed Avg. Bias Concentration Concentration Concentration TBil 7mg/dl TBil/ 1.2mg/dl +0.23mg.dl +0.20mg/dlBuBc 3.5mg/dl Bu/0.8mg/dl +0.25mg/dl +0.24mg/dlBuBc 7 mg/dl Bu/14.2mg/dl +0.38mg/dl +0.25mg/dlBuBc 5mg/dl Bc/0mg/dl +0.25mg/dl +0.15mg/dlBuBc 3.5mg/dl Bc/2.8mg/dl +0.25mg/dl +0.23mg/dl SGOT/AST (test code = AST) 56 UNITS/L 17-59 N SGPT/ALT (test code = ALT) 52 UNITS/L 0-49 H ALKALINE PHOSPHATASE (test code = ALKP) 113 UNITS/L 38-126 N GLYCOSYLATED HEMOGLOBIN [id number] 04:52:00* Test Item Value Reference Range Interpretation Comme nts GLYCOSYLATED HEMOGLOBIN (HA1C) (test code = GLYHGB) 5.1 % 4.8-5.9 N Any condition th at shortens erythocyte survival or decreasesmean erythrocyte age (e.g., recovery from acute blood loss,hemolytic anemia) will falsely lower HGBA1c resultsregardless of the method used. HGBA1c results from patientswith HbSS, HbCC, and HbSc must be interpreted with cautiongiven the pathological processes, including anemia,increased red cell turnover, transfusion requirements, thatadversely impact HGBA1c as a marker of long-term glycemiccontrol. Alternative forms of testing such as fructosamineshould be considered for these patients. MEAN BLOOD GLUCOSE (test code = MBG) 100 MG/DL 70-110 N CBC W/AUTO [id number] 04:39:00* Test Item Value Reference Range Interpretation Comme nts WHITE BLOOD CELL (test code = WBC) 16.5 K/MM3 3.8-9.8 H RED BLOOD CELL (test code = RBC) 4.49 M/MM3 3.95-5.67 N HEMOGLOBIN (test code = HGB) 13.0 G/DL 12.4-16.7 N HEMATOCRIT (test code = HCT) 38.6 % 35.9-49.5 N MEAN CELL VOLUME (test code = MCV) 86 fL 81.7-96.1 N MEAN CELL HGB (test code = MCH) 29.0 pg 27.6-33.2 N MEAN CELL HGB CONCETRATION (test code = MCHC) 33.7 % 32.9-35.5 N RED CELL DISTRIBUTION WIDTH (test code = RDW) 15.1 % 12.1-15.2 N PLATELET COUNT (test code = PLT) 205 K/MM3 129-368 N MEAN PLATELET VOLUME (test c ode = MPV) 10.2 fl 7.4-10.4 N NEUTROPHIL % (test code = NT%) 57.5 % 43-75 N IMMATURE GRANULOCYTE % (test code = IG%) 0.7 % 0.0-2.0 N LYMPHOCYTE % (test code = LY%) 28.3 % 14-44 N MONOCYTE % (test code = MO%) 10.2 % 4-13 N EOSINOPHIL % (test code = EO%) 2.9 % 0-6 N BASOPHIL % (test code = BA%) 0.4 % 0-2 N NUCLEATED RBC % (test code = NRBC%) 0.0 % 0-1.0 N NEUTROPHIL # (test code = NT#) 9.49 K/mm3 2.0-7.6 H IMMATURE GRANULOCYTE # (test code = IG#) 0.11 x10 3/uL 0-0.03 H LYMPHOCYTE # (test code = LY#) 4.66 K/mm3 1.0-3.8 H MONOCYTE # (test code = MO#) 1.69 K/mm3 0.1-0.8 H EOSINOPHIL # (test code = EO#) 0.48 K/mm3 0.0-0.2 H BASOPHIL # (test code = BA#) 0.06 K/mm3 0.0-0.2 N NUCLEATED RBC # (test code = NRBC#) 0.00 K/mm3 0.0-0.1 N GLUCOSE BEDSIDE [id number] 01:09:00* Test Item Value Reference Range Interpretation Comme nts GLUCOSE BEDSIDE TESTING (david t code = GLUBED) 166 MG/DL 60-99 H - CT ABD PELVIS [id number] 15:06:00 [facility] 1975 Sex: M Patient Name: CECILY GREENE Unit No: [id number] EXAMS: CPT CODE: [id number] CT ABD PELVIS W/CONT [id number] CLINICAL HISTORY: suprapubic abscess. LOCATION: A1 FINDINGS: Following the administration of 100 mL Omnipaque 350 intravenous contrast only, multislice axial images are obtained through the abdomen and pelvis during the venous phase. Coronal and sagittal reconstructed images are obtained and are used in interpretation. Creatinine is 1.3. GFR is greater than 60. No comparison studies. Linear hypodensity within the right hepatic lobe with peripheral branching may represent focally dilatedbiliary duct. The gallbladder has been surgically removed. The pancreas and spleen are within normal limits. There is a 2.2 cm hypodense left adrenal nodule demonstrating density measurement of 36.26 Hounsfield units. No imaging follow-up is recommended unless there is history of primary malignancyor significant clinical risk factors. The right adrenal gland is normal in appearance. The kidneys are normal in appearance. The intrapelvic viscera are within normal limits. No significant adenopathy is identified. No free fluid or fluid collections are evident. No focal signs of inflammation are noted within the abdomen or pelvis. The appendix is not identified. No inflammatory changes are noted in the expected location of the appendix. There is pronounced subcutaneous fat stranding at the pubic region. No fluid collections are noted. No acute skeletal abnormalities are identified. IMPRESSI ON: 1. There is pronounced subcutaneous fat stranding at the pubic region suggestive of inflammatory process. Please correlate clinically. No fluid collections are noted to suggest abscess. 2. Thereis linear hypodensity within the right hepatic lobe with peripheral branching that may represent focally dilated biliary duct. MRI abdomen without and with contrast may be performed for further evaluation on a nonemergent basis. This exam was performed according to our departmental dose-optimization program, which includes automated exposure control, adjustment of the mA and/or kV according to patient size and/or use of iterative reconstruction technique at 1506 Reported and signed by: Yosi Diaz MD CC: Keith Beavers MD Technologist: LYNN SPIVEY, RT (R)(CT) CTDI: DLP: Trnscrpt: 12/13/2023 (1506) t.SDR.RC7 [place] [facility] NAME: CECILY GREENE [address] PHYS: Keith Godinez MD : 1975 AGE: 47 SEX: [place] [address] LOC: JOSE PHONE #: EXAM DATE: 12/13/2023 STATUS: REG ER FAX #: RAD #: D/C DT PAGE 1 Signed Report Patient Name: CECILY GREENE Unit No: [id number] EXAMS: CPT CODE: [id number] CT ABD PELVIS W/CONT 59735 (Continued) Orig Print D/T: S: 12/13/2023 (1509) [facility] NAME: CECILY GREENE [address] PHYS: Keith Godinez MD : 1975 AGE: 47 SEX: [place] [address] LOC: JOSE PHONE #: EXAM DATE: 12/13/2023 STATUS: REG ER FAX #: RAD #: D/C DT PAGE 2 Signed ReportTransthoracic echo (TTE)2022-06-09 16:34:43* Test Item Value Reference Range Interpretation Comme nts Height (test code = 9754073293) in Weight (test code = 6881780634) lbs Systolic BP (test code = 4705454864) mmHg Diastolic BP (test code = 6014108124) mmHg Heart Rate (test code = 5015436203) bpm BSA (test code = 9878565516) 2.8 m2 Ao root annulus (test code = 2639809126) 3.6 cm Ao root diam (test code = 4091637488) 3.60 cm Aortic root (test code = 6379149237) 3.6 cm LVOT diameter (test code = 9951912624) 2.18 cm LVIDD (test code = 7628786863) 5.00 cm IVS (test code = 5065452689) 1.51 cm Interventricular Septum Diastolic Thickness by 2D (test code = 4192106) 1.51 cm LVPWD (test code = 9732757867) 1.50 cm PW (test code = 4862224956) 1.50 cm 0.6-1.1 EF(Teich) (test code = 1172431341) 60.50 % LVIDS (test code = 1385416544) 3.40 cm FS (test code = 9980009449) 32 % EF - 2D (test code = 68727208) 60.50 % LA size (test code = 9157557449) 3.6 cm LAV(MOD-sp4) (test code = 6923353862) 99.30 mL E wave decelartion time (test code = 8783947288) 0.19 s MV stenosis pressure 1/2 time (test code = 1047298505) 57.7 ms MV Peak E William (test code = 5584346440) 75.9 cm/s MV Peak A William (test code = 7177703712) 91.3 cm/s E/A ratio (test code = 4707450000) ratio MV Prop V (test code = 7562749890) 70.40 cm/s MV E/e' septal (test code = 2981400030) 12.8 cm/s TR Peak William (test code = 3840372140) 258.6 cm/s Triscuspid Valve Regurgitation Peak Gradient (test code = 1955197695) mmHg Tapse (test code = 4048173298) 3.2 cm LVOT stroke volume (test code = 6235692637) 94.70 cm3 LVOT peak william (test code = 6451549062) 135.2 cm/s LVOT mn grad (test code = 4946806459) mmHg AV LVOT peak gradient (test code = 4628449963) mmHg LVOT peak VTI (test code = 8699224802) 25.3 cm LV V1 mean (test code = 9235162639) 97.30 cm/s Aortic valve mean velocity (test code = 4884512634) 170.1 cm/s Ao peak william (test code = 7216060201) 239.6 cm/s Ao VTI (test code = 2029489753) 46.1 cm AV area by cont VTI (test code = 0334352548) 2.1 cm2 AV area peak william (test code = 6547619210) 2.1 cm2 Ao max PG (test code = 3217106735) 23.00 mm[Hg] AV peak gradient (test code = 9600836514) mmHg AV valve area (test code = 1673867586) 2.06 cm2 AV mean gradient (test code = 6949015173) mmHg AV regurgitation pressure 1/2 time (test code = 4727241448) 724.8 ms AI dec slope (test code = 1264501104) 211.10 cm/s2 AI max william (test code = 2004904884) 522.30 cm/s AI max PG (test code = 8192577546) 109.10 mm[Hg] Radiology Study observation (narrative) (test code = 61516-0) [place]O (test code = ORLANDO) Formatting of this result is different from the original. ?Left?Ventricle: Left ventricle size is normal. Mildly increased wall thickness. Normal wall motion. Normal systolic function with a visually estimated EF of 60 - 65%. There is impaired relaxation. Normal left ventricular filling pressure. ?Tricuspid?Valve: Right ventricular systolic pressure is normal. ?RA pressure is 0-5 mmHg. ?Aortic?Valve: Mild transvalvular regurgitation. Left VentricleLeft ventricle size is normal. Mildly increased wall thickness. Normal wall motion. Normal systolic function with a visually estimated EF of 60 - 65%. There is impaired relaxation. Normal left ventricular filling pressure.Right VentricleRight ventricle size is normal. Normal systolic function.Left AtriumLeft atrium size is normal.Right AtriumRight atrium size is normal. There is a prominent Eustachian valve.Mitral ValveMitral valve structure is normal. Trace transvalvular regurgitation.Tricusp id ValveTricuspid valve structure is normal. Trace transvalvular regurgitation. Right ventricular systolic pressure is normal. RA pressure is 0-5 mmHg.Aortic ValveTricuspid. Mild transvalvular regurgitation.Pulmoni c ValveNot well visualized.Ascending AortaAorta is normal in size.PericardiumThe pericardium is normal.Study DetailsStudy quality was adequate. A complete echocardiogram was performed using 2D, color flow Doppler and spectral Doppler. 5 mL of Lumason ultrasound enhancing agent used. [facility]2021-06-09 19:00:37* Test Item Value Reference Range Interpretation Comme nts SARS-CoV-2 Rapid ID NOW (test code = 57697-3) Not Detected Not Detected OR[place]O (test code = ORLANDO) ID NOW COVID-19 As say is an isothermal nucleic acid amplification test intended for the qualitative detection of nucleic acid from SARS-CoV-2 viral RNA in nasopharyngeal (MANAGEMENT SERVICES TECHNICIAN) specimens. It is used under Emergency Use Authorization (EUA) by FDA. The limit of detection (LOD) of the assay is 125 Genome Equivalents/mL. A positive result is indicative of the presence of SARS-CoV-2 RNA. ?Clinical correlation with patient history and other diagnostic information is necessary to determine patient infection status. A negative (Not Detected) result does not preclude SARS-CoV-2 infection. In patients with clinical symptoms and other tests that are consistent with SARS-CoV-2 infection, negative results should be treated as presumptive negative and a new specimen should be tested with alternative PCR molecular test. Invalid: Please collect a new specimen for repeat patient testing if clinically indicated. Lab Interpretation (test code = 51548-3) Normal [facility]-19 (ID NOW RAPID TESTING)2021-06-09 19:00:37* Test Item Value Reference Range Interpretation Comme nts SARS-CoV-2 Rapid ID NOW (david t code = 07819-5) Not Detected Not Detected [place]O (test code = ORLANDO) Lab Interpretation (test cod e = 11554-9) [facility] 02:43:31* Test Item Value Reference Range Interpretation Comme nts APPEARANCE (test code = 9143657872) Clear Clear COLOR (test code = 6034608939) Yellow Yellow PH (test code = 8299330825) 4.8-8.0 SP GRAVITY (test code = 7733911645) 1.003-1.030 GLU U QUAL (test code = 1767781813) Normal Normal BLOOD (test code = 2192695385) Negative Negative KETONES (test code = 6391161215) Negative Negative PROTEIN (test code = 2887-8) Negative Negative UROBILIN (test code = 3475577988) Normal Normal BILIRUBIN (test code = 1229096330) Negative Negative NITRITE (test code = 3480586547) Negative Negative LEUK BEN (test code = 1351167766) Negative Negative RBC/HPF (test code = 9384468970) See_Comment [Automated messa ge] The system which generated this result transmitted reference range: 0 - 3 HPF. The reference range was not used to interpret this result as normal/abnormal. WBC/HPF (test code = 0132236852) See_Comment [Automated messa ge] The system which generated this result transmitted reference range: 0 - 5 HPF. The reference range was not used to interpret this result as normal/abnormal. BACTERIA (test code = 3446899306) Negative Negative MUCOUS (test code = 6924727479) Slight Negative LPF A Lab Interpretation (test code = 01765-6) Abnormal [facility] with [id number] 01:58:06* Test Item Value Reference Range Interpretation Comme nts WBC (test code = 6690-2) See_Comment H [Automated messa ge] The system which generated this result transmitted reference range: 4.20 - 10.70 10*3/?L. The reference range was not used to interpret this result as normal/abnormal. RBC (test code = 789-8) See_Comment [Automated messa ge] The system which generated this result transmitted reference range: 4.26 - 5.52 10*6/?L. The reference range was not used to interpret this result as normal/abnormal. HGB (test code = 718-7) 12.4 g/dL 12.2-16.4 HCT (test code = 4544-3) 37.2 % 38.4-49.3 L MCV (test code = 787-2) 86.7 fL 81.7-95.6 MCH (test code = 785-6) 28.9 pg 26.1-32.7 MCHC (test code = 786-4) 33.3 g/dL 31.2-35.0 RDW-SD (test code = 89068-6) 47.4 fL 38.5-51.6 RDW-CV (test code = 788-0) 14.9 % 12.1-15.4 PLT (test code = 777-3) See_Comment [Automated messa ge] The system which generated this result transmitted reference range: 150 - 328 10*3/?L. The reference range was not used to interpret this result as normal/abnormal. MPV (test code = 39454-2) 9.5 fL 9.8-13.0 L NRBC/100 WBC (test code = 9977953478) See_Comment [Automated [employer] ssage] The system which generated this result transmitted reference range: 0.0 - 10.0 /100 WBCs. The reference range was not used to interpret this result as normal/abnormal. NRBC x10^3 (test code = 0498492923) <0.01 See_Comment [Automated messa ge] The system which generated this result transmitted reference range: 10*3/?L. The reference range was not used to interpret this result as normal/abnormal. GRAN MAT (NEUT) % (test code = 770-8) 54.8 % IMM GRAN % (test code = 0138185123) 1.10 % LYMPH % (test code = 736-9) 36.1 % MONO % (test code = 5905-5) 6.9 % EOS % (test code = 713-8) 0.7 % BASO % (test code = 706-2) 0.4 % GRAN MAT x10^3(ANC) (test code = 3100093949) 7.36 10*3/uL 1.99-6.95 H IMM GRAN x10^3 (test code = 7943148199) 0.15 10*3/uL 0.00-0.06 H LYMPH x10^3 (test code = 731-0) 4.84 10*3/uL 1.09-3.23 H MONO x10^3 (test code = 742-7) 0.93 10*3/uL 0.36-1.02 EOS x10^3 (test code = 711-2) 0.09 10*3/uL 0.06-0.53 BASO x10^3 (test code = 704-7) 0.05 10*3/uL 0.01-0.09 Lab Interpretation (test code = 77720-2) Abnormal [facility] DallasComplete Metabolic [id number] 01:33:37* Test Item Value Reference Range Interpretation Comme nts NA (test code = 8095993099) 142 mmol/L 135-145 K (test code = 5657699569) 3.4 mmol/L 3.5-5.0 L CL (test code = 7741216042) 108 mmol/L 98-108 CO2 TOTAL (test code = 7750206970) 28 mmol/L 23-31 AGAP (test code = 0869830474) 2-16 BUN (test code = 9499422817) 17 mg/dL 7-23 GLUCOSE (test code = 9163704515) 95 mg/dL 70-110 CREATININE (test code = 7834210577) 0.97 mg/dL 0.60-1.25 TOTAL BILI (test code = 5243529694) 0.4 mg/dL 0.1-1.1 CALCIUM (test code = 6246011751) 9.1 mg/dL 8.6-10.6 T PROTEIN (test code = 5627460487) 7.2 g/dL 6.3-8.2 ALBUMIN (test code = 9574682327) 4.1 g/dL 3.5-5.0 ALK PHOS (test code = 7004664898) 85 U/L 34-122 ALTv (test code = 1742-6) 33 U/L 5-50 AST(SGOT) (test code = 1084246676) 34 U/L 13-40 eGFR (test code = 2867499100) mL/min/1.73m2 OR[place]O (test code = ORLANDO) Association of Glomerular Filtration Rate (GFR) and Staging of Kidney Disease* + --+ --+ ------+| GFR (mL/min/1.73 m2) ?| With Kidney Damage ?| ?Without Kidney Damage+ --------+ --------+ +| ?>90 ?| ?Stage one ?| ? Normal ?+ ---+ ---+ -------+| ?60-89 ?| ?Stage two ?| ? Decreased GFR ? + --+ --+ ------+| ?30-59 ?| ?Stage three ?| ? Stage three ? + --+ --+ ------+| ?15-29 ?| ?Stage four ? | ? Stage four ?+ ---+ ---+ -------+| ?<15 (or dialysis) ? ?| ?Stage five ? | ? Stage five ?+ ---+ ---+ -------+ *Each stage assumes the associated GFR level has been in effect for at least three months. ?Stages 1 to 5, with or without kidney disease, indicate chronic kidney disease. Notes: Determination of stages one and two (with eGFR >59mL/min/1.73 m2) requires estimation of kidney damage for at least three months as defined by structural or functional abnormalities of the kidney, manifested by either:Pathological abnormalities or Markers of kidney damage (including abnormalities in the composition of the blood or urine or abnormalities in imaging tests). Lab Interpretation (test code = 22809-4) Abnormal [facility] DallasLip[facility], [id number] 01:32:57* Test Item Value Reference Range Interpretation Comme nts LIPASE (test code = 5321631020) 21 U/L 0-220 Lab Interpretation (test cod e = 78815-6) Normal [facility] DallasCT HEAD WO [id number] 04:46:50No acute intracranial abnormality. No cervical fracture or subluxation. Preliminary Report Dictatedby Resident: Adarsh Daugherty I, Joaquin Hwang MD., have reviewed this study and agree with theabove report.EXAM: CT HEAD WO CONTRAST, CT CERVICAL SPINE WO CONTRAST HISTORY: Headache, acute, normal neuro exam COMPARISON: None TECHNIQUE: CT imaging of the head and cervical spine was obtained withoutIV c ontrast. Coronal and sagittal reformats were constructed. FINDINGS: HEAD: The ventricles and cerebral sulci are normal in caliber and configuration.No hydrocephalus, midline shift, or significant mass effect is detected.The basal cisterns are intact. No acute intracranial hemorrhage or pathologicalextra-axial fluidcollection is demonstrated. A remote lacunar infarct is noted in the rightcerebellar hemisphere. No additional parenchymal attenuation abnormality isidentified. The gardner-white matterdifferentiation is preserved. The mastoid air cells and paranasal air sinuses are clear. The calvariumand remaining skull base are unremarkable. CERVICAL SPINE: The vertebral bodies are normal heightand alignment. The intervertebraldisc spaces are preserved. Mild marginal osteophytes are noted. The facetjoints are aligned. The craniocervical junction is intact. The prevertebral soft tissues are unremarkable. [facility], Radiant Results Inft User - 07/26/2020 11:48 PM CDTEXAM: CT HEAD WO CONTRAST, CTCERVICAL SPINE WO CONTRASTHISTORY: Headache, acute, normal neuro exam COMPARISON: NoneTECHNIQUE: CTimaging of the head and cervical spine was obtained withoutIV contrast. Coronal and sagittal reformats were constructed.FINDINGS:HEAD:The ventricles and cerebral sulci are normal in caliber and configuration.No hydrocephalus, midline shift, or significant mass effect is detected.The basal cisterns are intact.No acute intracranial hemorrhage or pathological extra-axial fluidcollection is demonstrated. A remote lacunar infarct is noted in the rightcerebellar hemisphere. No additional parenchymal attenuation abnormality isidentified. The gardner-white matter differentiation is preserved.The mastoidair cells and paranasal air sinuses are clear. The calvariumand remaining skull base are unremarkable.CERVICAL SPINE:The vertebral bodies are normal height and alignment. The intervertebraldisc spaces are preserved. Mild marginal osteophytes are noted. The facetjoints are aligned. The craniocervical junction is intact.The prevertebral soft tissues are unremarkable.IMPRESSIONNo acute intracranial abnormality.No cervical fracture or subluxation.Preliminary Report Dictated by Resident: Joaquin Rod MD., have reviewed this study and agree with theabove report.[facility] DallasCT CERVICAL SPINE WO [id number] 04:46:50No acute intracranial abnormality. No cervical fracture or subluxation. Preliminary Report Dictatedby Resident: Adarsh Daugherty I, Joaquin Hwang MD., have reviewed this study and agree with theabove report.EXAM: CT HEAD WO CONTRAST, CT CERVICAL SPINE WO CONTRAST HISTORY: Headache, acute, normal neuro exam COMPARISON: None TECHNIQUE: CT imaging of the head and cervical spine was obtained withoutIV contrast. Coronal and sagittal reformats were constructed. FINDINGS: HEAD: The ventricles and cerebral sulci are normal in caliber and configuration.No hydrocephalus, midline shift, or significant mass effect is detected.The basal cisterns are intact. No acute intracranial hemorrhage or pathologicalextra-axial fluidcollection is demonstrated. A remote lacunar infarct is noted in the rightcerebellar hemisphere. No additional parenchymal attenuation abnormality isidentified. The gardner-white matterdifferentiation is preserved. The mastoid air cells and paranasal air sinuses are clear. The calvariumand remaining skull base are unremarkable. CERVICAL SPINE: The vertebral bodies are normal heightand alignment. The intervertebraldisc spaces are preserved. Mild marginal osteophytes are noted. The facetjoints are aligned. The craniocervical junction is intact. The prevertebral soft tissues are unremarkable. [facility], Radiant Results Inft User - 07/26/2020 11:47 PM CDTEXAM: CT HEAD WO CONTRAST, CTCERVICAL SPINE WO CONTRASTHISTORY: Headache, acute, normal neuro exam COMPARISON: NoneTECHNIQUE: CTimaging of the head and cervical spine was obtained withoutIV contrast. Coronal and sagittal reformats were constructed.FINDINGS:HEAD:The ventricles and cerebral sulci are normal in caliber and configuration.No hydrocephalus, midline shift, or significant mass effect is detected.The basal cisterns are intact.No acute intracranial hemorrhage or pathological extra-axial fluidcollection is demonstrated. A remote lacunar infarct is noted in the rightcerebellar hemisphere. No additional parenchymal attenuation abnormality isidentified. The gardner-white matter differentiation is preserved.The mastoidair cells and paranasal air sinuses are clear. The calvariumand remaining skull base are unremarkable.CERVICAL SPINE:The vertebral bodies are normal height and alignment. The intervertebraldisc spaces are preserved. Mild marginal osteophytes are noted. The facetjoints are aligned. The craniocervical junction is intact.The prevertebral soft tissues are unremarkable.IMPRESSIONNo acute intracranial abnormality.No cervical fracture or subluxation.Preliminary Report Dictated by Resident: Joaquin Rod MD., have reviewed this study and agree with theabove report.[facility] DallasXR CHEST 1 [id number] 07:12:10Impression: No radiographic evidence for acute cardiopulmonary disease. RL: 460 AFC: [id number] Indication: Cough for one week Comparison: None Findings: Single AP view of the chest. The cardiopericardial silhouette iswithin normal limits. The lungs are clear bilaterally. The visualized bonythorax is intact. [facility], Radiant Results Inft User - 11/20/2019 1:14 AM CSTIndication: Cough for one weekComparison: NoneFindings: Single AP view of the chest. The cardiopericardial silhouette iswithin normal limits. The lungs are clear bilaterally. The visualized bonythorax is intact.IMPRESSIONImpression:No radiographic evidence for acutecardiopulmonary disease.RL: 460AFC: [id number] signed by Kimberly Cade MD, PhD at 11/20/2019 1:12 AM [facility] Notes Date/Time Note Provider Source 2024-07-04 10:11:00 [facility] ([facility]) EMERGENCY PROVIDER REPORT REPORT#:[id number] REPORT STATUS: Signed DATE:07/04/24 TIME: 101 PATIENT: CECILY GREENE UNIT #: [id number] ROOM/BED: : 75 AGE: 48 SEX: M PCP PHYS: Jacqueline Barahona MD SERVICE AUTHOR: Nayan Liang MD LOCATION: [facility] REP SRV REP SRV TM: 1011 * ALL edits or amendments must be made on the electronic/computer document * HPI-Back Pain 40 and Over Free Text HPI Notes Free Text HPI Notes 48-year-old male history of morbid obesity, chronic back pain, hypertension presents to the emergency department due to concern for back pain. He has had acute pain for the past 2 days that is worse than normal. No trauma. No urinary symptoms, fever, IV drug use history. General Initial Greet Date/Time 07/04/24 1011 Presentation Chief Complaint Pain, lumbar Sudden in Onset? No Risk-Back Pain 40 and Over Risk Stratification )( Abdominal Aortic Aneurysm Hypertension )( Thoracic Aortic Dissection Hypertension Review of Systems ROS Statements All systems rev neg except as marked. Past Medical History - Adult Stated Complaint BACK PAIN Allergies Coded Allergies: No Known Allergies (05/28/24) Home Medications Active Scripts VALSARTAN (DIOVAN) 80 MG PO BID 30 Days #60 TABS Prov: 05/28/24 amLODIPine (NORVASC) 10 MG PO DAILY amLODIPine (NORVASC) 10 MG PO DAILY #30 TABS Prov: 05/28/24 Discontinued Scripts IBUPROFEN (MOTRIN) 600 MG PO QID PRN PRN PAIN IBUPROFEN (MOTRIN) 600 MG PO QID PRN PRN PAIN #30 TABS Prov: 05/28/24 DC: 07/04/24 1024 Therapy completed ONDANSETRON ODT (ZOFRAN ODT) 4 MG PO Q6H PRN PRN NAUSEA/VOMITING ONDANSETRON ODT (ZOFRAN ODT) 4 MG PO Q6H PRN PRN NAUSEA/VOMITING #15 TABS Prov: 05/28/24 DC: 07/04/24 1024 Therapy completed BENZONATATE (TESSALON) 100 MG PO Q8H PRN PRN COUGH BENZONATATE (TESSALON) 100 MG PO Q8H PRN PRN COUGH #30 CAPS Prov: 05/28/24 DC: 07/04/24 1024 Therapy completed VALSARTAN (DIOVAN) 80 MG PO Q12HR 30 Days #60 TAB Prov: 12/15/23 DC: 07/04/24 1024 Therapy completed amLODIPine (NORVASC) 10 MG PO DAILY 30 Days #30 TAB Prov: 12/15/23 DC: 07/04/24 1024 Therapy completed CEPHALEXIN (KEFLEX) 1,000 MG PO Q8H 10 Days #60 CAPS Prov: 12/15/23 DC: 07/04/24 1024 Therapy completed ACETAMINOPHEN/CODEINE (TYLENOL WITH CODEINE #3 300/30 MG) 1 TAB PO Q6H PRN PRN ACUTE PAIN ACETAMINOPHEN/CODEINE (TYLENOL WITH CODEINE #3 300/30 MG) 1 TAB PO Q6H PRN PRN ACUTE PAIN #15 TABS Prov: 12/15/23 DC: 07/04/24 1024 Therapy completed Past Medical History: Reports: Hypertension. Additional Surgical History Umbilical hernia repair Family History: Reports: Hypertension. Alcohol Use Denies EtOH use Drug Use Denies recreational drugs Physical Exam Vital Signs Vital Signs First Documented: Result Date Time Pulse Ox 97 07/04 1010 B/P 147/93 07/04 1010 B/P Mean 111 07/04 1010 O2 Delivery Room air 07/04 1010 Temp 36.5 07/04 1010 Pulse 75 07/04 1010 Resp 18 07/04 1010 Last Documented: Result Date Time Pulse Ox 98 07/04 1115 B/P 132/86 07/04 1115 B/P Mean 101 07/04 1115 O2 Delivery Room air 07/04 1115 Temp 36.6 07/04 1115 Pulse 68 07/04 1115 Resp 14 07/04 1115 Review of Vital Signs Reviewed Focused PE General/Const General/Const Awake, Alert Resp/Chest Respiratory/Chest Breath sounds NL, Breath sounds = bilat, No respiratory distress, No rales, No rhonchi, No wheezing Cardiovascular Cardiovascular Heart rate NL, Regular rhythm, Heart sounds NL, No murmurs, Peripheral circulation NL Abdomen/GI Abdomen/GI Soft, Non-tender, No guarding, No rebound, No distention, No palpable mass, No pulsatile mass MS Back Text/Dict Notes right paraspinal lumbar tenderness, no step off MS Lower Extrem Lower Ext/Pelvis/MS Inspection NL, No swelling, Non-tender, No erythema, No deformity, Neurologic intact, Vascular intact, No edema Neurologic Neurologic Oriented X3, Speech NL, No motor deficits, No sensory deficits, CN II - XII intact, Reflexes equal bilat, Cerebellar NL Interpretation Diagnostics Lab Results Interpretation Results Laboratory Tests: 07/04 07/04 07/04 1041 1037 1021 Chemistry POC Sodium (128 - 145 mmol/L) 146 H POC Potassium (3.6 - 5.1 mmol/L) 3.8 POC Chloride (98 - 108 mmol/L) 111 H POC Total CO2 (18 - 33 mmol/L) 27 POC Anion Gap (4 - 14 mmol/L) 8 POC BUN (7 - 22 mg/dL) 15 POC Creatinine (0.6 - 1.2 mg/dL) 1.1 Est GFR (CKD-EPI 2020) (>=60 mL/min) 83 POC Glucose (73 - 118 mg/dL) 104 POC Calcium (8.0 - 10.3 mg/dL) 9.3 POC Total Bilirubin (0.2 - 1.6 mg/dL) 0.5 POC AST (11 - 38 U/L) 51 H POC ALT (10 - 47 U/L) 46 POC Alk Phosphatase (53 - 128 U/L) 102 POC Total Protein (6.4 - 8.1 g/dL) 7.0 POC Albumin (3.3 - 5.5 g/dL) 3.6 Hematology POC WBC (4.0 - 10.5 10 3/uL) 12.5 H POC RBC (4.63 - 6.08 10 6/uL) 4.83 POC Hgb (13.7 - 17.5 g/dL) 13.9 POC Hct (40.1 - 51.0 %) 42.8 POC MCV (79.4 - 94.8 fL) 88.6 POC MCH (25.7 - 32.2 pg) 28.8 POC MCHC (32.3 - 36.5 g/dL) 32.5 POC RDW Coeff of Sohail (11.6 - 14.4 %) 15.6 H POC Platelet Count (150 - 400 10 3/uL) 229 POC MPV (9.4 - 12.3 fL) 9.2 L POC Mixed Cells % (1.9 - 24.6 %) 5.5 POC Neut # (1.78 - 5.38 10 3/uL) 7.10 H POC Lymph # (Auto) (1.32 - 3.57 10 3/uL) 4.70 H POC Mixed Cells # (0.1 - 1.5 10 3/uL) 0.7 POC Lymphocytes % (21.8 - 53.1 %) 37.5 POC Neutrophils % (34.0 - 67.9 %) 57.0 Urines POC Urine Color (Yellow) [place] A POC Urine Appearance (Clear) Clear POC Urine pH (5.0 - 8.0) 5.5 POC Ur Specif [place] (1.001 - 1.035) >= 1.030 POC Urine Protein (Negative) 30 A POC Ur Glucose (UA) (Negative) Negative POC Urine Ketones (Negative) Negative POC Urine Blood (Negative) Negative POC Urine Nitrite (Negative) Negative POC Urine Bilirubin (Negative) Small A POC Urine Urobilinogen (0.2 - 1.0 E.U/dL) 0.2 POC U Leukocyte [place]ster[place] (Negative) Negative Recent Impressions: CAT SCAN - CT L-SPINE W/O CONTRAST 07/04 1026 Report Impression - Status: SIGNED Entered: 07/04/2024 1104 IMPRESSION: A moderate colonic stool burden within the sigmoid colon/rectal vault. No obstructive uropathy or bowel obstruction. Scattered colonic diverticula are seen, without pericolic inflammation. Diffuse hepatic steatosis. Stable 2.2 cm left lipid rich adrenal adenoma. No acute fracture or malalignment of the lumbar spine. Probable moderate degenerative spinal canal stenosis at L3-L4 and L4-L5. At least moderate bilateral foraminal stenosis at L4-L5 and L5-S1. Wayne Robles DO Neuroradiologist Impression By: Evelyn Robles DO CAT SCAN - CT ABD PELVIS W/O CONT 07/04 1026 Report Impression - Status: SIGNED Entered: 07/04/2024 1104 IMPRESSION: A moderate colonic stool burden within the sigmoid colon/rectal vault. No obstructive uropathy or bowel obstruction. Scattered colonic diverticula are seen, without pericolic inflammation. Diffuse hepatic steatosis. Stable 2.2 cm left lipid rich adrenal adenoma. No acute fracture or malalignment of the lumbar spine. Probable moderate degenerative spinal canal stenosis at L3-L4 and L4-L5. At least moderate bilateral foraminal stenosis at L4-L5 and L5-S1. Wayne Robles DO Neuroradiologist Impression By: Evelyn Robles DO Re-Evaluation MDM Free Text MDM Notes Free Text MDM Notes This patient presents with back pain most consistent with msk etiology. Differential diagnoses includes lumbago versus musculoskeletal spasm / strain versus sciatica No back pain red flags on history or physical. Presentation not consistent with malignancy (lack of history of malignancy, lack of B symptoms), fracture (no trauma, no bony tenderness to palpation), cauda equina (no bowel or urinary incontinence/retention, no saddle anesthesia, no distal weakness), AAA, viscus perforation , pulmonary embolism, renal colic, pyelonephritis (afebrile, no CVAT, no urinary symptoms). CT confirms multiple degenerative changes of a chronic nature. No acute pathology. Very low clinical suspicion for cauda equina. Patient is ambulatory in the ED with steady gait. He feels much better after Toradol given in the ED. Will discharge home with pain medication and I advised him to follow-up urgently with Ortho Spine ED Course Medication(s) Ordered Medication(s) Ordered: Central Nervous System Agents Sig/Kenney Start time Last Medication Dose Route Stop Time Status Admin Ketorolac 30 MG X1ED STA 07/04 1019 DC 07/04 Tromethamine IV 07/04 1020 1028 Differential Diagnosis )( Differential Diagnosis Deg osteoarthritis, Degen joint disease, Fracture, Herniated disk, Lumbar strain, Musculoskeletal pain Patient Discharge Departure Vital Signs/Condition Vital Signs First Documented: Result Date Time Pulse Ox 97 07/04 1010 B/P 147/93 07/04 1010 B/P Mean 111 07/04 1010 O2 Delivery Room air 07/04 1010 Temp 36.5 07/04 1010 Pulse 75 07/04 1010 Resp 18 07/04 1010 Last Documented: Result Date Time Pulse Ox 98 07/04 1115 B/P 132/86 07/04 1115 B/P Mean 101 07/04 1115 O2 Delivery Room air 07/04 1115 Temp 36.6 07/04 1115 Pulse 68 07/04 1115 Resp 14 07/04 1115 All vital signs available at the time of this entry have been reviewed. Clinical Impression Clinical Impression Primary Impression: ACUTE ON CHRONIC LUMBAR BACK PAIN Secondary Impressions: Degenerative disc disease, lumbar Disposition Decision Discharge )( Discharged to Home Yes )( Time 1109 )( Date 07/04/24 Discharge/Care Plan (Auto) Prescriptions Current Visit Scripts KETOROLAC (TORADOL) 10 MG PO Q6H PRN PRN PAIN KETOROLAC (TORADOL) 10 MG PO Q6H PRN PRN PAIN #20 TABS CYCLOBENZAPRINE (FLEXERIL) 10 MG PO Q8H PRN PRN MUSCLE SPASMS/PAIN CYCLOBENZAPRINE (FLEXERIL) 10 MG PO Q8H PRN PRN MUSCLE SPASMS/PAIN #15 TABS Patient Instructions ED Back Care Tips Referrals Provider Referral: Joaquin Welsh MD Address: [address] [place] [address], [facility] [address] [place] [address] Provider Referral: Chris Frederick MD Address: [address] [place] [address] at 12[address] [facility] #:[id number] END OF REPORT [facility] 2024-05-28 10:13:00 [facility] ([facility]) EMERGENCY PROVIDER REPORT REPORT#:[id number] REPORT STATUS: Signed DATE:05/28/24 TIME: 1013 PATIENT: CECILY GREENE UNIT #: [id number] ROOM/BED: AGE: 48 SEX: M PCP PHYS: No Primary or Family Physician SERVICE AUTHOR: Mechelle Heredia MD LOCATION: [facility] * ALL edits or amendments must be made on the electronic/computer document * HPI-URI/Cough/Cold Free Text HPI Notes Free Text HPI Notes 48 yo w c/o cough, headache, diarrhea for 2 days. No known sick contacts. Has not taking any medications for symptoms. Woke up with bodyaches, general fatigue. Patient with clear sputum. General Initial Greet Date/Time 05/28/24 1013 Presentation Chief Complaint Cough, productive, Sore throat, diarrhea Review of Systems ROS Statements All systems rev neg except as marked. Focused Review of Systems Constitutional Reports: Fatigue, Lethargy, Malaise. Denies: Chills, Fever. Ears/Nose/Throat Reports: Nasal congestion, Sore throat. Respiratory Reports: Cough, productive. Denies: Shortness of breath, Wheezing. GI Reports: Diarrhea, Nausea. Denies: Abdominal pain, Vomiting. Skin Denies: Rash. Past Medical History - Adult Stated Complaint BODY ACHED AND SOB Allergies Coded Allergies: No Known Allergies (05/28/24) Home Medications Active Scripts VALSARTAN (DIOVAN) 80 MG PO Q12HR 30 Days #60 TAB Prov: 12/15/23 amLODIPine (NORVASC) 10 MG PO DAILY 30 Days #30 TAB Prov: 12/15/23 CEPHALEXIN (KEFLEX) 1,000 MG PO Q8H 10 Days #60 CAPS Prov: 12/15/23 ACETAMINOPHEN/CODEINE (TYLENOL WITH CODEINE #3 300/30 MG) 1 TAB PO Q6H PRN PRN ACUTE PAIN ACETAMINOPHEN/CODEINE (TYLENOL WITH CODEINE #3 300/30 MG) 1 TAB PO Q6H PRN PRN ACUTE PAIN #15 TABS Prov: 12/15/23 Past Medical History: Reports: Hypertension. Additional Surgical History Umbilical hernia repair Family History: Reports: Hypertension. Alcohol Use Denies EtOH use Drug Use Denies recreational drugs Smoking status for patients 13 years old or older: Current every day smoker Physical Exam Vital Signs Vital Signs First Documented: Result Date Time Pulse Ox 98 05/28 1005 B/P 167/95 05/28 1005 B/P Mean 119 05/28 1005 O2 Delivery Room air 05/28 1005 Temp 36.8 05/28 1005 Pulse 88 05/28 1005 Resp 18 05/28 1005 Last Documented: Result Date Time Pulse Ox 99 05/28 1046 B/P 148/91 05/28 1046 B/P Mean 110 05/28 1046 Temp 36.9 05/28 1046 Pulse 84 05/28 1046 Resp 18 05/28 1046 O2 Delivery Room air 05/28 1005 Review of Vital Signs Reviewed, Vital signs abnormal Basic Physical Exam Basic PE HEAD: Atraumatic/NC, EYES: PERRL, conj clear, NECK: Supple, CV: Reg rate rhythm, ABD: Soft/non-tender, EXT: No gross abnormality, SKIN: No rashes, warm/dry, NEURO: alert oriented, NEURO: gross movement NL, PSYCH: NL thought content Focused PE Ears/Nose/Throat Ears/Nose/Throat Atraumatic, Airway patent, Mucous membranes moist Pharynx/Tonsils/Uvula Pharyngeal erythema. Negative: Tonsillar erythema R, Tonsillar erythema L, Tonsillar exudate R, Tonsillar exudate L, Tonsillar swelling R, Tonsillar swelling L, Peritonsil abscess R, Peritonsil abscess L, Trismus present, Epiglottis enlarged, Epiglottis erythematous, Uvula deviated R, Uvula deviated L , Uvula edematous, Uvula enlarged, Uvula erythematous. Resp/Chest Respiratory/Chest Atraumatic, Breath sounds NL, Breath sounds = bilat, No respiratory distress, No rales, No rhonchi, No wheezing, No retractions, No stridor, No chest tenderness, No chest wall deformity, No crepitus Interpretation Diagnostics Lab Results Interpretation Results Laboratory Tests: 05/28 05/28 05/28 1034 1019 1018 Serology POC Influenza A Ag (Negative) Negative POC Influenza B Ag (Negative) Negative SARS-CoV-2 Ag (Rapid) (Negative) Negative POC Group A Strep Rpd (Negative) Negative Microbiology: Date/Time Procedure - Status Source Growth 05/28 1025 Group A Streptococcus Screen (PAULO) - ORD THROAT Lab Statement Laboratory studies reviewed and considered in the medical decision-making. Re-Evaluation MDM Free Text MDM Notes Free Text MDM Notes 48 yo w c/o cough, headache, diarrhea for 2 days. No known sick contacts. Has not taking any medications for symptoms. Woke up with bodyaches, general fatigue. Patient with clear sputum. out of htn meds for 1 month. On exam patient breathing easily, clear bilaterally, posterior pharynx red, no swelling or exudate will test covid, strep, flu, to r/o infectious etiology as high incidence in community. tylenol/motrin for pain/fever Discussed with patient if positive for strep/pna then we will give antibiotics but if negative patient should try gxev-yxa-[id number] medications for her symptoms is likely viral etiology. Discussed DayQuil, NyQuil, ibuprofen, Tylenol, Chloraseptic spray, cough drops for symptoms. Discussed viral timeline 7-10 up to 14 days and needing to take medications daily for symptomatic relief until the virus is cleared by the body. Increase hydration due to increase metabolic needs, vitamin C and zinc are additional homeopathic therapies ED Course Medication(s) Ordered Medication(s) Ordered: Central Nervous System Agents Sig/Kenney Start time Last Medication Dose Route Stop Time Status Admin Ibuprofen 800 MG X1ED STA 05/28 1014 DC 05/28 PO 05/28 1015 1022 Gastrointestinal Drugs Sig/Kenney Start time Last Medication Dose Route Stop Time Status Admin Ondansetron HCl 4 MG X1ED STA 05/28 1014 DC 05/28 SL 05/28 1015 1022 Differential Diagnosis Differential Diagnosis Influenza, Pharyngitis, streptococca, Upper resp infection, Viral syndrome Patient Discharge Departure Vital Signs/Condition Vital Signs First Documented: Result Date Time Pulse Ox 98 05/28 1005 B/P 167/95 05/28 1005 B/P Mean 119 05/28 1005 O2 Delivery Room air 05/28 1005 Temp 36.8 05/28 1005 Pulse 88 05/28 1005 Resp 18 05/28 1005 Last Documented: Result Date Time Pulse Ox 99 05/28 1046 B/P 148/91 05/28 1046 B/P Mean 110 05/28 1046 Temp 36.9 05/28 1046 Pulse 84 05/28 1046 Resp 18 05/28 1046 O2 Delivery Room air 05/28 1005 All vital signs available at the time of this entry have been reviewed. Clinical Impression Clinical Impression Primary Impression: Viral illness Secondary Impressions: Hypertension, Medication refill Disposition Decision Discharge )( Discharged to Home Yes )( Time 1037 )( Date 05/28/24 Discharge/Care Plan (Auto) Prescriptions Current Visit Scripts IBUPROFEN (MOTRIN) 600 MG PO QID PRN PRN PAIN IBUPROFEN (MOTRIN) 600 MG PO QID PRN PRN PAIN #30 TABS ONDANSETRON ODT (ZOFRAN ODT) 4 MG PO Q6H PRN PRN NAUSEA/VOMITING ONDANSETRON ODT (ZOFRAN ODT) 4 MG PO Q6H PRN PRN NAUSEA/VOMITING #15 TABS VALSARTAN (DIOVAN) 80 MG PO BID 30 Days #60 TABS amLODIPine (NORVASC) 10 MG PO DAILY amLODIPine (NORVASC) 10 MG PO DAILY #30 TABS BENZONATATE (TESSALON) 100 MG PO Q8H PRN PRN COUGH BENZONATATE (TESSALON) 100 MG PO Q8H PRN PRN COUGH #30 CAPS Patient Instructions ED Viral Syndrome (Adult) Additional Instructions You tested negative to flu, covid, strep. Please take tylenol/motrin for pain/fever Tylenol 1 g every 6-8 hours for pain fever Ibuprofen as prescribed. May take medications every 3 hours-for example Tylenol at 6 AM and 12 PM, ibuprofen at 9 AM and 3 PM. This will cycle each medication every 6 hours but every 3 hours some sort of pain or fever relief. You will not overdose on either medications by spreading it out like this Ddrv-xhj-pqyupob medicines you may take as well DayQuil, NyQuil, Chloraseptic spray, cough drops for symptoms. If you take DayQuil and NyQuil do not take additional Tylenol. Viruses can last 7-10 up to 14 days and should medications daily for symptomatic relief until the virus is cleared by the body. Increase hydration due to increase metabolic needs, vitamin C and zinc are additional homeopathic therapies Follow-up with your PCP Return to the emergency room if symptoms do not improve. at 1528 RPT #:[id number] END OF REPORT [facility] 2023-12-15 22:06:00 [facility] ([facility]) Discharge Summary REPORT#:[id number] REPORT STATUS: Signed REPORT INITIALIZATION DATE:12/15/23 TIME: 2205 PATIENT: CECILY GREENE UNIT #: [id number] ROOM/BED: [address] : [address] AGE: 47 SEX: M ATTEND: Buck Howard MD ADM AUTHOR: Buck Howard MD REPT SERVICE DT/TIME: 12/15/23 8179 * ALL edits or amendments must be made on the electronic/computer document * PCP PCP PCP: PCP: No Primary or Family Physician Discharge to: home General Information Date of admission: Observation Start Date: 12/14/23 Date of admission: 12/14/23 Discharge date: 12/15/23 Admission diagnosis: Abdominal WaLL cellulitis with Abscess Discharge diagnosis: Abdominal wall cellulitis with abscess s/p incision and Drainage Hospital course: Mr. Greene is a 47 year old male with a pmhx of Obesity and tobacco use who presented to an outside ED with c/o a "boil" to his suprapubic region for the past 4-5 days prior to admission . He stated it initially began as a small "bump " which he popped by himself. Over the next 1-2 days he noticed increased pain, swelling, erythema to the area which gradually was worsening. About 2 days ago prior to admission he did notice some bloody/pus like discharge from the area as well. He had an episode of vomiting during this time . He denies any similar symptoms in the past. He denies an fever or chills. CT abdomen pelvis showed: Pronounced subcutaneous fat stranding at the pubic region suggestive of inflammatory process. No fluid collections noted to suggest abscess. His systolic blood pressure is noted to be over 200 on arrival to the ED. He has previously been on lisinopril for hypertension but was no longer taking the medication.BP has since stabilized Patient s/p Incision and drainage by surgeon and he was transitioned subsequently to home on oral antibiotics. Consultants: surgery Pt. condition on discharge: improved Allergies: Allergies: No Known Allergies (Coded, 12/13/23) Med Rec PCP PCP: PCP: No Primary or Family Physician Med Rec Discharge meds: Start taking the following new medications: VALSARTAN (DIOVAN) 80 MG TAB 80 MILLIGRAM ORAL EVERY 12 HOURS. Days = 30 Qty = 60 No Refills amLODIPine (NORVASC) 10 MG TAB 10 MILLIGRAM ORAL DAILY. Days = 30 Qty = 30 No Refills CEPHALEXIN (KEFLEX) 500 MG CAP 1,000 MILLIGRAM ORAL EVERY 8 HOURS. Days = 10 Qty = 60 No Refills ACETAMINOPHEN/CODEINE (TYLENOL WITH CODEINE #3 300/30 MG) 300 MG-30 MG TAB 1 TABLET ORAL EVERY 6 HOURS NEEDED. as needed for ACUTE PAIN Qty = 15 No Refills Discharge Instructions PCP )( Discharge to: Home/Self Care Discharge Instructions Additional Discharge Routines: PCP Follow-Up, [facility] Follow-Up )( Diet: Cardiac )( Return to work/school date: 12/20/23 Follow-up Appointments PCP follow up: PCP: No Primary or Family Physician PCP follow up timeframe: In 5 days Special instructions: CALL TO MAKE APPOINTMENT. Consulting provider 1: Provider 1: Forest Cochran MD Specialty: General Surgery Consult follow up timeframe: In 1-2 weeks Special instructions: CALL TO MAKE APPOINTMENT. Consulting provider 2: Provider 2: Buck Howard MD Specialty: Internal Medicine Follow up timeframe: In 1-2 weeks Special instructions: CALL TO MAKE APPOINTMENT. Consulting provider 3: Provider 3: Naman Palacios MD Specialty: Family Medicine Follow up timeframe: In 1-2 weeks Special instructions: CALL TO MAKE APPOINTMENT. Consulting provider 4: Provider 4: Alondra Florence MD Specialty: Family Medicine Follow up timeframe: In 1-2 weeks Special instructions: CALL TO MAKE APPOINTMENT. at 2213 RPT #:[id number] END OF REPORT [facility] 2023-12-15 09:48:00 [facility] ([facility] General Surgery Progress Note REPORT#:[id number] REPORT STATUS: Signed REPORT INITIALIZATION DATE:12/15/23 TIME: 947 PATIENT: CECILY GREENE UNIT #: [id number] [facility] [address] [address] AGE: 47 SEX: M ATTEND: Buck Howard MD ADM AUTHOR: To Simmons MD R1 REPT SERVICE DT/TIME: 12/15/23 0948 * ALL edits or amendments must be made on the electronic/computer document * To Simmons 12/15/23 0948: Subjective Chief complaint: Suprapubic Abscess HPI: Patient reports suprapubic pain has improved since I D; denies any radiating pain. Continued administration of IV Abx and [place]. Patient notes [place] provides very minimal pain relief about incision site. Patient is able to ambulate. Denies any draining or dressing changes overnight. Denies any erythema, dysuria, nausea, vomitting and fever/chills. Review of Systems : Reports: other (Suprapubic incision site pain). All systems rev neg: except as marked Objective General VS/I O: Last Documented: Result Date Time Pulse Ox 93 12/14 1046 B/P 158/101 / 1046 B/P Mean 120.3 12/14 1046 Temp 36.6 12/14 1046 Pulse 62 12/14 1046 Resp 19 12/14 1046 O2 Delivery Room air 12/13 0413 Vital Signs Date Temp Pulse Resp B/P B/P Mean Pulse Ox FiO2 /-12/14 36.4-36.9 62-78 17-20 155-178/75-10 105.2-126.8 93-98 1 24 hour I O ending at 0700: 12/14 0700 / 1900 Intake Total 1600.00 360 Output Total Balance 1600.00 360 Intake, IV 1300.00 Intake, Oral 300 360 Number Voids 2 PATIENT WEIGHT: Weight (lb): 340 Weight (oz): 11.41 Weight (kg): 154.545 Medications: Active Meds + DC'd Last 24 Hrs Lidocaine HCl (XYLOCAINE 1%) 5 ML ONCE ONE LOCAL (DC) Morphine Sulfate (morphine SULFATE (C-II)) 4 MG NOW ONE IV (DC) Potassium Phosphate (POTASSIUM PHOSPHATE) 30 MM ONCE ONE IV (DC) Sodium Chloride (SODIUM CHLORIDE 0.9%) 500 ML Vancomycin HCl (VANCOMYCIN HCL) 1,250 MG Q8H IV Sodium Chloride (SODIUM CHLORIDE 0.9%) 250 ML Heparin Sodium (HEPARIN SODIUM) 5,000 UNITS Q8HR SUBQ Hydralazine HCl (APRESOLINE) 10 MG Q6H PRN PRN IV Acetaminophen (TYLENOL) 650 MG Q6H PRN PRN PO Amlodipine Besylate (NORVASC) 10 MG DAILY PO Clonidine HCl (CATAPRES) 0.1 MG Q6H PRN PRN PO Hydrocodone Bitart/Acetaminophen (NORCO 10/325 TABLET (C-II)) 1 TAB Q4H PRN PRN PO Miscellaneous Information (VANCOMYCIN PHARMACY TO DOSE) 1 EACH ASDIR IV (CKD) Ondansetron HCl (ZOFRAN) 4 MG Q6H PRN PRN IV Nutrtion assessment: The data set between the solid lines has been imported from the dietitian's assessment. BMI Calculated: 43.7 Nutrition related diagnosis: Nutrition diagnosis details: Nutrition problem: Nutrition etiology: Nutrition signs and symptoms: Nutrition prescription: Dietitian name: Assessment completed: Physical Exam General appearance: alert, awake, oriented, no acute distress Skin: Suparpubic wound, mild s/s drainage, no purulence. Improving induration Results Findings/Data: Laboratory Tests 12/15/23 0618: [Embedded Image Not Available] Laboratory Tests 12/14 12/14 12/13 0646 0618 1841 Chemistry Sodium (137 - 145 MMOL/L) 139 Potassium (3.5 - 5.1 MMOL/L) 3.8 Chloride (98 - 107 MMOL/L) 108 H Carbon Dioxide (22 - 30 MMOL/L) 29 BUN (9 - 20 MG/DL) 11 Creatinine (0.66 - 1.25 MG/DL) 0.90 Glomerular Filtr Rate > 60 Glucose (74 - 106 MG/DL) 105 POC Glucose (60 - 99 MG/DL) 100 H 125 H Calcium (8.4 - 10.2 MG/DL) 8.9 Total Bilirubin (0.2 - 1.3 MG/DL) 0.6 AST (17 - 59 UNITS/L) 52 ALT (0 - 49 UNITS/L) 58 H Total Alk Phosphatase (38 - 126 UNITS/L) 127 H Total Protein (6.2 - 7.6 G/DL) 7.3 Albumin (3.5 - 5.0 G/DL) 4.0 Laboratory Tests 12/14 0618 Hematology WBC (3.8 - 9.8 K/MM3) 11.8 H RBC (3.95 - 5.67 M/MM3) 4.59 Hgb (12.4 - 16.7 G/DL) 13.0 Hct (35.9 - 49.5 %) 39.0 MCV (81.7 - 96.1 fL) 85 MCH (27.6 - 33.2 pg) 28.3 MCHC (32.9 - 35.5 %) 33.3 RDW (12.1 - 15.2 %) 15.0 Plt Count (129 - 368 K/MM3) 205 MPV (7.4 - 10.4 fl) 10.0 Neut % (Auto) (43 - 75 %) 62.2 Lymph % (Auto) (14 - 44 %) 24.9 [place] % (Auto) (4 - 13 %) 8.3 Eos % (Auto) (0 - 6 %) 3.7 Baso % (Auto) (0 - 2 %) 0.3 Neut # (Auto) (2.0 - 7.6 K/mm3) 7.35 Lymph # (Auto) (1.0 - 3.8 K/mm3) 2.94 [place] # (Auto) (0.1 - 0.8 K/mm3) 0.98 H Eos # (Auto) (0.0 - 0.2 K/mm3) 0.44 H Baso # (Auto) (0.0 - 0.2 K/mm3) 0.04 Immature Gran % (0.0 - 2.0 %) 0.6 Nucleated RBC % (0 - 1.0 %) 0.0 Nucleated RBCs # (Man) (0.0 - 0.1 K/mm3) 0.00 Diagnosis, Assessment Plan Free Text A P: 47 y/o male s/p I D suprapubic abscess 1) Changed dressing 2) Educated patient on wound care. Daily packing changes 3) Antibiotics per primary team 4) Surgically cleared for discharge 5) Follow up with Dr. Cochran outpatient in 2 weeks Consultants: surgery Attestations Attestation needed: supervising physician Forest Cochran 12/15/23 1536: Attestations Physician Attestation Agree w/findings plan: I have seen and examined the patient Dr. Simmons and I agree with the history/ exam/assessment/plan as noted by the resident with the following exceptions: None. I have also reviewed the chart, vitals, labs and appropriate imaging. at 1517 at 1537 RPT #:[id number] END OF REPORT [facility] 2023-12-14 17:59:00 [id number] [place] [id number] PATIENT NAME: CECILY GREENE ADMIT DATE: 12/14/23 ACCOUNT NO: [id number] ROOM NO: [facility] AGE: 48 REPORT TYPE: OPERATIVE REPORT SEX: M ADMITTING PHYSICIAN:Buck Howard MD ATTENDING PHYSICIAN:Buck Howard MD OPERATION DATE: 12/14/2023 PREPROCEDURE DIAGNOSIS: Suprapubic abscess. POSTPROCEDURE DIAGNOSIS: Suprapubic abscess. PROCEDURE PERFORMED: Incision and drainage of suprapubic abscess. SURGEON: Forest Cochran MD ROD POINTER: ANESTHESIA: Local. SPECIMENS: None. BLOOD LOSS: 5 mL COUNTS: Correct. CONDITION: Stable. DRAINS: None. COMPLICATIONS: None. INDICATIONS AND FINDINGS: The patient is a 47-year-old male with a suprapubic wound draining some pus. Lot of pain. Diagnosed with abscess and proceed with bedside I and D. Numbed the area. I made an elliptical incision over the abscess. Broke into the cavity. Some purulence in it, which was drained out. Irrigated out the abscess and packed. The patient tolerated the procedure well. No complications. I completely drained abscess breaking up all loculations. DESCRIPTION OF PROCEDURE IN DETAIL: The patient was placed supine on his bed. Prepped area with Betadine. Injected lidocaine for local into the surrounding area. I made an elliptical incision over area of old central ulceration. I used scissors to break up all loculations. Pressed to completely drain abscess. Irrigated out wound to make abscess is completely drained. Packed with quarter-inch plain packing. Dressed with gauze and tape. The patient tolerated entire procedure with no issues. Dictated By: Forest Cochran MD PATIENT NAME: CECILY GREENE Date Dictated: 12/14/2023 17:59:26 Date Transcribed: 12/14/2023 20:24:05 [place] Receipt ID: [id number] Authenticated by Mark Cochran MD On 01/04/2024 04:53:47 PM at 0453 PATIENT NAME: CECILY GREENE [facility] 2023-12-14 17:21:00 [facility] General Surgery Consult Note REPORT#:[id number] REPORT STATUS: Signed REPORT INITIALIZATION DATE:12/14/23 TIME: 1720 PATIENT: CECILY GREENE UNIT #: [id number] ROOM/BED: [address] : 75 AGE: 47 SEX: M ATTEND: Buck Howard MD ADM AUTHOR: To Simmons MD R1 REPT SERVICE DT/TIME: 12/14/231720 * ALL edits or amendments must be made on the electronic/computer document * To Simmons 12/14/23 1721: History of Present Illness Reason for consult: Suprapubic abscess HPI: The patient is a 47 years old male with PMH of HTN who presented with suprapubic pain and swelling for one week, he noticed the area was draining when applied pressure. The pain is throbbing like and migrating to L pelvic region. The pain is severe and not well controlled by current regimen. Worse with any movement or touch. Slightly better with pain meds. Continues to have drainage. No fever/chills. Denies prior history of ingrown hair, cellulitis and prior abscess. History - Adult longitudinal Past medical history: Reports: Hypertension. Additional surgical history: Umbilical hernia repair Family history: Reports: Hypertension. Alcohol use: Denies EtOH use Drug use: Denies recreational drugs Smoking status for patients 13 years old or older: Current every day smoker Date last smoked: 12/13/23 Packs per day: 1 Years smoked: 20 Pack years: 20 Allergies: Coded Allergies: No Known Allergies (12/13/23) Review of Systems Constitutional: Denies: chills, fatigue, fever, generalized weakness, lethargy, malaise, recent wt loss. Skin: swelling. Denies: abrasion, bruising, contusion, diaphoresis, ecchymosis, itching, laceration, rash. Allergy/Immun: Denies: allergic reaction, anaphylaxis, hives, itching, rhinorrhea, sneezing. Eyes: Denies: redness, discharge, visual loss/blurred, itching, diplopia, eye pain, photophobia, swelling. ENT: Denies: ear drainage, ear ringing, earache, hearing loss, mouth pain, nasal congestion, nose bleeding, sinus problem, sore throat, throat pain, throat swelling, tongue pain, tongue swelling, toothache, voice change. Respiratory: Denies: RODRIGUEZ (dyspnea on exertion), hemoptysis, non productive cough, parox nocturnal dyspnea, pleurisy, pleuritic pain, pneumonia, productive cough (sputum ), SOB, wheezing. Cardiovascular: Denies: chest pain, RODRIGUEZ (dyspnea on exertion), edema, orthopnea, palpitations, parox nocturnal dyspnea. GI: Denies: abdominal pain, anorexia, constipation, diarrhea, dysphagia, GERD, hematemesis, hematochezia, hiatal hernia, melena, nausea, rectal pain, vomiting. : Reports: other (Suprapubic pain ). Denies: dysuria, flank pain, frequency, hematuria, nocturia, penile discharge, penile lesion, testicular pain, testicular swelling, urgency, urinary retention. Musculoskeletal: Denies: arthritis, extremity pain, extremity swelling, joint pain, joint swelling, lumbar pain, myalgias, neck pain, thoracic pain. Heme: Denies: adenopathy, bleeding, bruising, petechiae. Endocrine: Denies: cold intolerance, heat intolerance, polydipsia, polyphagia, polyuria, weight gain, weight loss. Neuro: Denies: bladder dysfunction, bowel dysfunction, change in LOC, confusion, dizziness, focal weakness, gait problem, headache, lightheaded, numbness, seizure, slurred speech, spinning sensation, syncope, unable to speak, vision change, weakness. Psych: Denies: agitation, anxiety, auditory hallucination, change in mental status, confusion, delusional, depression, homicidal ideation, hostile, insomnia, stress , suicidal ideation, visual hallucination. All systems rev neg: except as marked Objective Physical Exam VS/I O Last Documented: Result Date Time Pulse Ox 97 12/13 1546 B/P 159/97 12/13 1546 B/P Mean 117.8 12/13 1546 Temp 36.9 12/13 1546 Pulse 72 12/13 1546 Resp 18 12/13 1546 O2 Delivery Room air 12/13 0413 Vital Signs Date Temp Pulse Resp B/P B/P Mean Pulse Ox FiO2 12/12-12/13 36.4-37.3 67-87 16-18 156-186/83-104 107.3-131 91-99 24 hour I O ending at 0700: 12/13 0700 12/12 1900 Intake Total 60.00 Output Total Balance 60.00 Intake, IV 60.00 Patient 154.545 kg 154.545 kg Weight Weight Bed scale Stated/Reported Measurement Method PATIENT WEIGHT: Weight (lb): 340 Weight (oz): 11.41 Weight (kg): 154.545 General appearance: alert, awake, oriented, no acute distress HEENT: atraumatic, moist mucosal membranes, normocephalic Neck: full range of motion, non-tender, supple/no meningismus Chest: normal appearance, no tenderness Respiratory: aerating well, symmetric expansion, no distress Abdomen: non-tender, normal bowel sounds, soft Extremities: moves all, normal capillary refill, normal temperature Musculoskeletal: full range of motion, normal inspection, painless range of motion Skin: Suparpubic area of induration 5 cm with erythema; central area of ulceration with purulent drainage Lymphatics: inguinal normal, no lymphadenopathy Results Findings/Data: Laboratory Tests: 12/13 12/13 12/13 12/13 12/13 1111 1046 0305 0305 0107 Chemistry Sodium (137 - 145 MMOL/L) 140 Potassium (3.5 - 5.1 MMOL/L) 3.4 L Chloride (98 - 107 MMOL/L) 107 Carbon Dioxide (22 - 30 MMOL/L) 33 H Anion Gap (14 - 24 MMOL/L) 3 L BUN (9 - 20 MG/DL) 15 Creatinine (0.66 - 1.25 MG/DL) 1.20 Glomerular Filtr Rate > 60 Glucose (74 - 106 MG/DL) 100 POC Glucose (60 - 99 MG/DL) 112 H 166 H Mean Blood Glucose (70 - 110 MG/DL) 100 Hemoglobin A1c (4.8 - 5.9 %) 5.1 Calcium (8.4 - 10.2 MG/DL) 9.0 Phosphorus (2.5 - 4.5 MG/DL) 2.3 L Magnesium (1.6 - 2.3 MG/DL) 2.2 Total Bilirubin (0.2 - 1.3 MG/DL) 1.0 AST (17 - 59 UNITS/L) 56 ALT (0 - 49 UNITS/L) 52 H Total Alk Phosphatase (38 - 126 UNITS/L) 113 Total Protein (6.2 - 7.6 G/DL) 7.3 Albumin (3.5 - 5.0 G/DL) 3.9 Hematology WBC (3.8 - 9.8 K/MM3) 16.5 H RBC (3.95 - 5.67 M/MM3) 4.49 Hgb (12.4 - 16.7 G/DL) 13.0 Hct (35.9 - 49.5 %) 38.6 MCV (81.7 - 96.1 fL) 86 MCH (27.6 - 33.2 pg) 29.0 MCHC (32.9 - 35.5 %) 33.7 RDW (12.1 - 15.2 %) 15.1 Plt Count (129 - 368 K/MM3) 205 MPV (7.4 - 10.4 fl) 10.2 Neut % (Auto) (43 - 75 %) 57.5 Lymph % (Auto) (14 - 44 %) 28.3 Yancey % (Auto) (4 - 13 %) 10.2 Eos % (Auto) (0 - 6 %) 2.9 Baso % (Auto) (0 - 2 %) 0.4 Neut # (Auto) (2.0 - 7.6 K/mm3) 9.49 H Lymph # (Auto) (1.0 - 3.8 K/mm3) 4.66 H Yancey # (Auto) (0.1 - 0.8 K/mm3) 1.69 H Eos # (Auto) (0.0 - 0.2 K/mm3) 0.48 H Baso # (Auto) (0.0 - 0.2 K/mm3) 0.06 Immature Gran % (0.0 - 2.0 %) 0.7 Nucleated RBC % (0 - 1.0 %) 0.0 Nucleated RBCs # (Man) (0.0 - 0.1 K/mm3) 0.00 Microbiology: Date/Time Procedure - Status Source Growth 12/13 0503 MRSA Screen - RECD NASAL Diagnosis, Assessment Plan Consultants: surgery Free Text DxA P Notes Free Text DxA P Notes: The patient is a 47 years old male with was admitted for suprapubic abscess 1) Bedside I D performed on 12/13, wound packed with iodoform 2) Continue current antibiotic regimen 3) Pain management per primary team. 4) Daily packing changes 5) If improved tomorrow, possible d/c Attestations Attestation needed: supervising physician Forest Cochran 12/14/23 1855: Attestations Physician Attestation Agree w/findings plan: I have seen and examined the patient with Dr. Simmons and I agree with the history/exam/assessment/plan as noted by the resident with the following exceptions: None. I have also reviewed the chart, vitals, labs, and appropriate imaging. at 1845 at 1856 RPT #:[id number] END OF REPORT [facility] 2023-12-14 10:14:00 [facility] ([facility]) History Physical - Adult REPORT#:[id number] REPORT STATUS: Signed REPORT INITIALIZATION DATE:12/14/23 TIME: 1014 PATIENT: CECILY GREENE RAY UNIT #: [id number] ROOM/BED: [address] : [address] AGE: 48 SEX: M ATTEND: Buck Howard MD ADM AUTHOR: Zena Calderón REPT SERVICE DT/TIME: 12/14/23 1014 * ALL edits or amendments must be made on the electronic/computer document * History of Present Illness HPI Chief complaint: Pain and swelling suprapubic region PCP: PCP: No Primary or Family Physician HPI: Mr. Greene is a 47 year old male with a pmhx of Obesity and tobacco use who presented to an outside ED with c/o a "boil" to his suprapubic region for the past 4-5 days. He states it initially began as a small "bump" which he popped by himself. Over the next 1-2 days he noticed increased pain, swelling, erythema to the area which gradually was worsening. About 2 days ago he did notice some bloody/pus like discharge from the area as well. He had an episode of vomiting during this time but none in the past 24 hours. He denies any similar symptoms in the past. He denies an fever or chills. Labs showed: Leukocytosis. CT abdomen pelvis showed: Pronounced subcutaneous fat stranding at the pubic region suggestive of inflammatory process. No fluid collections noted to suggest abscess. His systolic blood pressure is noted to be over 200 on arrival to the ED. He has previously been on lisinopril for hypertension but is no longer taking the medication. Hx Obtained From Patient History Past medical history: Reports: Hypertension. Additional surgical history: Umbilical hernia repair Family history: Reports: Hypertension. Alcohol use: Denies EtOH use Drug use: Denies recreational drugs Smoking status for patients 13 years old or older: Current every day smoker Date last smoked: 12/13/23 Packs per day: 1 Years smoked: 20 Pack years: 20 Medication/Allergy-Vaccine Hx Allergies: Coded Allergies: No Known Allergies (12/13/23) Review of Systems Constitutional: Denies: chills, fatigue, fever. Skin: Reports: rash, swelling. Denies: itching. Eyes: Denies: redness, discharge, itching. Respiratory: Denies: RODRIGUEZ (dyspnea on exertion), non productive cough, productive cough ( sputum), SOB. Cardiovascular: Denies: chest pain, RODRIGUEZ (dyspnea on exertion), edema. GI: Reports: vomiting. Denies: abdominal pain, constipation, diarrhea, nausea. Musculoskeletal: Other musculoskeletal: Denies: lumbar pain, neck pain, thoracic pain. Neuro: Denies: dizziness, headache, lightheaded. Physical Exam VS/I O Vital Signs: Date Time Temp Pulse Resp B/P B/P Pulse O2 O2 Flow FiO2 Mean Ox Delivery Rate 12/13 1108 36.6 67 18 156/83 107.3 99 12/13 0725 36.4 67 18 173/97 121.9 98 12/13 0413 36.6 87 16 179/84 115.8 98 Room air 12/13 0044 37.1 81 16 167/101 123.1 91 Room air 12/12 2214 36.6 79 18 162/93 116 98 Room air 12/12 2129 70 18 168/94 118 98 Room air 12/12 2000 37.3 78 18 186/104 131 99 Room air 12/12 1700 37.2 78 18 180/98 125 99 Room air 12/12 1400 72 18 174/98 123 99 Room air 24 hour I O ending at 0700: 12/13 0700 12/12 1900 Intake Total 60.00 Output Total Balance 60.00 Intake, IV 60.00 Patient 154.545 kg 154.545 kg Weight Weight Bed scale Stated/Reported Measurement Method PATIENT WEIGHT: Weight (lb): 340 Weight (oz): 11.41 Weight (kg): 154.545 General appearance: alert, awake, no acute distress, pleasant, conversational, no respiratory distress Head/Eyes: atraumatic, normocephalic, normal conjunctiva/sclera, normal eyelids/ periorb Neck: supple, full range of motion, no masses or swelling Cardiovascular: regular rate rhythm, normal heart sounds, no murmur Respiratory: clear to auscultation, no distress, aerating well, symmetric expansion Abdomen/GI: soft, non-tender, no distention Extremities: moves all, no clubbing, no cyanosis, no peripheral edema Musculoskeletal: no muscle spasm Neuro/TRAVEL CLERK: alert, normal speech, no motor deficits Skin: erythema, warm, dry Results Findings/Data: Laboratory Tests: 12/13 12/13 12/13 12/13 12/13 1111 1046 0305 0305 0107 Chemistry Sodium (137 - 145 MMOL/L) 140 Potassium (3.5 - 5.1 MMOL/L) 3.4 L Chloride (98 - 107 MMOL/L) 107 Carbon Dioxide (22 - 30 MMOL/L) 33 H Anion Gap (14 - 24 MMOL/L) 3 L BUN (9 - 20 MG/DL) 15 Creatinine (0.66 - 1.25 MG/DL) 1.20 Glomerular Filtr Rate > 60 Glucose (74 - 106 MG/DL) 100 POC Glucose (60 - 99 MG/DL) 112 H 166 H Mean Blood Glucose (70 - 110 MG/DL) 100 Hemoglobin A1c (4.8 - 5.9 %) 5.1 Calcium (8.4 - 10.2 MG/DL) 9.0 Phosphorus (2.5 - 4.5 MG/DL) 2.3 L Magnesium (1.6 - 2.3 MG/DL) 2.2 Total Bilirubin (0.2 - 1.3 MG/DL) 1.0 AST (17 - 59 UNITS/L) 56 ALT (0 - 49 UNITS/L) 52 H Total Alk Phosphatase (38 - 126 113 UNITS/L) Total Protein (6.2 - 7.6 G/DL) 7.3 Albumin (3.5 - 5.0 G/DL) 3.9 Hematology WBC (3.8 - 9.8 K/MM3) 16.5 H RBC (3.95 - 5.67 M/MM3) 4.49 Hgb (12.4 - 16.7 G/DL) 13.0 Hct (35.9 - 49.5 %) 38.6 MCV (81.7 - 96.1 fL) 86 MCH (27.6 - 33.2 pg) 29.0 MCHC (32.9 - 35.5 %) 33.7 RDW (12.1 - 15.2 %) 15.1 Plt Count (129 - 368 K/MM3) 205 MPV (7.4 - 10.4 fl) 10.2 Neut % (Auto) (43 - 75 %) 57.5 Lymph % (Auto) (14 - 44 %) 28.3 Yancey % (Auto) (4 - 13 %) 10.2 Eos % (Auto) (0 - 6 %) 2.9 Baso % (Auto) (0 - 2 %) 0.4 Neut # (Auto) (2.0 - 7.6 K/mm3) 9.49 H Lymph # (Auto) (1.0 - 3.8 K/mm3) 4.66 H Yancey # (Auto) (0.1 - 0.8 K/mm3) 1.69 H Eos # (Auto) (0.0 - 0.2 K/mm3) 0.48 H Baso # (Auto) (0.0 - 0.2 K/mm3) 0.06 Immature Gran % (0.0 - 2.0 %) 0.7 Nucleated RBC % (0 - 1.0 %) 0.0 Nucleated RBCs # (Man) (0.0 - 0.1 0.00 K/mm3) Radiology data: Recent Impressions: CAT SCAN - CT ABD PELVIS W/CONT 12/12 1313 Report Impression - Status: SIGNED Entered: 12/13/2023 5359 IMPRESSION: 1. There is pronounced subcutaneous fat stranding at the pubic region suggestive of inflammatory process. Please correlate clinically. No fluid collections are noted to suggest abscess. 2. There is linear hypodensity within the right hepatic lobe with peripheral branching that may represent focally dilated biliary duct. MRI abdomen without and with contrast may be performed for further evaluation on a nonemergent basis. This exam was performed according to our departmental dose-optimization program, which includes automated exposure control, adjustment of the mA and/or kV according to patient size and/or use of iterative reconstruction technique Impression By: Nahum - Yosi Diaz MD Treatment Prophylaxis Treatment Prophylaxis Urinary cath status: none Oxygen: room air Diagnosis, Assessment Plan Orders: Procedure Date/time Status COMPREHENSIVE METABOLIC PANEL 12/14 0500 Active CBC W/AUTO DIFF 12/14 0500 Active CHANGE PATIENT STATUS 12/13 1227 Active PHOSPHOROUS 12/13 1015 Complete MAGNESIUM 12/13 1015 Complete Medication Reconciliaton 12/13 0855 Active SURGICAL CONSULT 12/13 0855 Active CHANGE PATIENT STATUS 12/13 0855 Active Consultants: surgery Free Text DxA P Notes Free Text DxA P Notes: Assessment Suprapubic phlegmon Hypertensive Urgency Leukocytosis Hypokalemia Hypophosphatemia Plan General Surgery consulted, appreciate input Continue broad spectrum Abx Follow up on blood culture results Replete electrolytes Repeat labs in the AM BP monitoring. Continue Norvasc DVT Prophylaxis: Heparin Cardiac diet Plan of care discussed with Dr. Howard Total time spent on the care of this patient today at the bedside and on the unit; > 70 minutes of which > 50% of the time spent with the patient. time spent in examination and evaluation of the patient as well as chart review, counseling and coordination of care including discussion of treatment plans and goals of care. at 1311 at 0032 RPT #:[id number] END OF REPORT [facility] 2023-12-14 05:49:00 [facility] ([facility]) Pharmacy Prog.Note-Vancomycin REPORT#:[id number] REPORT STATUS: Signed REPORT INITIALIZATION DATE:12/14/23 TIME: 548 PATIENT: CECILY GREENE UNIT #: [id number] ROOM/BED: [address] : [address] AGE: 47 SEX: M ATTEND: Buck Howard MD ADM AUTHOR: Zack Sahu [facility] REPT SERVICE DT/TIME: 12/14/23 0549 * ALL edits or amendments must be made on the electronic/computer document * Vancomycin Vancomycin Medication Therapy Treatment plan: consult Additional Comments: Subjective/Objective Patient presents to the emergency department with a boil in pubic region reports present for 4 days, states initially began as hair bump he popped it and then it began to swell. No fever, no chills, no nausea vomiting or diarrhea. Patient reports he does have a history of hypertension was prescribed lisinopril in the past however discontinued the medication without physician recommendation. Denies additional symptoms or complaints Indication: Skin Soft Tissue Infxn (no Osteo) Wt:154 kg (actual body weight), BMI:44 Assesment -Cultures: Pending.. -Imaging: Pending.. -Leukocytosis trending WBC= 16.5 -SCr 1.2 (baseline ), CrCl 119 -UOP/24 hours not yet available -Medications that may alter renal function: none -Concomitant antibiotics: none -Trough history: A Trough ordered for 12/15/23 05:00 Plan -Day of therapy: started on 12/14/23 , today is day 1 -Loading dose vancomycin 2000 mg (13mg/kg) IV x1 given in ER at 1600 12/12. -Maintain on vancomycin 1250 mg (8 mg/kg) IV Q 8 H -Trough-only monitoring -Plan for level before 4th dose -Goal trough 15-20 mcg/mL at 0558 RPT #:[id number] END OF REPORT [facility] 2023-12-13 13:07:00 [facility] ([facility]) EMERGENCY PROVIDER REPORT REPORT#:[id number] REPORT STATUS: Signed DATE:12/13/23 TIME: 1307 PATIENT: CECILY GREENE UNIT #: [id number] ROOM/BED: [address] AGE: 48 SEX: M PCP PHYS: No Primary or Family Physician SERVICE AUTHOR: Keith Beavers MD LOC[place] [facility] [place] * ALL edits or amendments must be made on the electronic/computer document * See Addendum HPI-Rash/Abscess/Cellulitis General Initial Greet Date/Time 12/13/23 1247 Presentation Chief Complaint Abscess Reason for ED Visit (v.PCP/UC) Patient presents to the emergency department with a boil in pubic region reports present for 4 days, states initially began as hair bump he popped it and then it began to swell. No fever, no chills, no nausea vomiting or diarrhea. Patient reports he does have a history of hypertension was prescribed lisinopril in the past however discontinued the medication without physician recommendation. Denies additional symptoms or complaints Review of Systems ROS Statements All systems rev neg except as marked. Free Text ROS Notes Free Text ROS Notes A review of 13 systems is otherwise noncontributory, except for pertinent positives and negatives in the HPI. Past Medical History - Adult Stated Complaint BOIL Allergies Coded Allergies: No Known Allergies (12/13/23) Physical Exam Vital Signs Vital Signs First Documented: Result Date Time Pulse Ox 99 12/12 1255 B/P 213/123 12/12 1255 B/P Mean 153 12/12 1255 O2 Delivery Room air 12/12 1255 Temp 37.2 12/12 1255 Pulse 105 12/12 1255 Resp 18 12/12 1255 Last Documented: Result Date Time Pulse Ox 99 12/12 1700 B/P 180/98 12/12 1700 B/P Mean 125 12/12 1700 O2 Delivery Room air 12/12 1699 Temp 37.2 12/12 1699 Pulse 78 12/12 170 Resp 18 12/12 170 Review of Vital Signs Reviewed, Vital signs abnormal Focused PE General/Const Text/Dict Notes Patient well-developed, well-nourished, no apparent distress, alert and oriented x 3. Morbidly obese Ears/Nose/Throat Text/Dict Notes Head is normocephalic and atraumatic pupils equally round and reactive to light, extraocular movement intact, no conjunctival injection or scleral icterus, oral mucosa moist and pink, no pharyngeal injection Resp/Chest Text/Dict Notes Lungs clear to auscultation bilaterally, no wheezes rales or rhonchi, no respiratory distress Cardiovascular Text/Dict Notes Tachycardia, no murmurs rubs or gallop Skin Text/Dict Notes Fist size subcu mass pubic region, small open pustule present, no active drainage, no surrounding warmth or erythema Neurologic Text/Dict Notes Alert and oriented x 3, gait within normal limits, no ataxia, moves all extremities equally, cranial nerves II through XII grossly intact Interpretation Diagnostics Lab Results Interpretation Results Microbiology: Date/Time Procedure - Status Source Growth 12/12 133 Blood Culture - RECD BLOOD 12/12 1330 Blood Culture - RECD BLOOD 12/12 133 Blood Culture - RECD BLOOD 12/12 1330 Blood Culture - RECD BLOOD Recent Impressions: CAT SCAN - CT ABD PELVIS W/CONT 12/12 1313 Report Impression - Status: SIGNED Entered: 12/13/2023 1509 IMPRESSION: 1. There is pronounced subcutaneous fat stranding at the pubic region suggestive of inflammatory process. Please correlate clinically. No fluid collections are noted to suggest abscess. 2. There is linear hypodensity within the right hepatic lobe with peripheral branching that may represent focally dilated biliary duct. MRI abdomen without and with contrast may be performed for further evaluation on a nonemergent basis. This exam was performed according to our departmental dose-optimization program, which includes automated exposure control, adjustment of the mA and/or kV according to patient size and/or use of iterative reconstruction technique Impression By: [email or web address] - Yosi Diaz MD Re-Evaluation MDM Free Text MDM Notes Free Text MDM Notes Concern for very large suprapubic abscess that may benefit from surgical drainage and sedation, will obtain labs to evaluate for evidence of sepsis also obtain CT pelvis to determine extent of abscess Additional Text Patient informed of CT finding, no obvious fluid collection recommend admission IV antibiotics and monitoring for phlegmon and leukocytosis ED Course Medication(s) Ordered Medication(s) Ordered: Anti-Infective Agents Sig/Kenney Start time Last Medication Dose Route Stop Time Status Admin Vancomycin HCl 2,000 MG X1ED STA 12/12 1521 AC 03/04 Sodium Chloride 500 ML IV 12/12 1920 1603 Cefazolin Sodium 1 GM X1ED STA 12/12 1309 DC 12/12 Sodium Chloride 10 ML IV 12/12 1310 1319 Central Nervous System Agents Sig/Kenney Start time Last Medication Dose Route Stop Time Status Admin Morphine Sulfate 4 MG X1ED STA 12/12 1524 DC /04 IV 12/12 1525 1603 Ketorolac 30 MG X1ED STA 12/12 1313 DC 03/04 Tromethamine IV / 1314 1319 Electrolytic, Caloric, And Ciarra Sig/Kenney Start time Last Medication Dose Route Stop Time Status Admin Sodium Chloride 1,000 ML ONCE ONE 12/12 1525 AC IV 12/13 0124 Sodium Chloride 1,545.45 ML X1ED STA 12/12 1308 DC 03/04 IV 03/ 1309 1318 Consultation Consultation Referral/Consult Name Buck Howard MD Requested Call Time 1528 Free Text Consult Notes imobile message sent Free Text MDM Notes Free Text MDM Notes awaiting bed assignment 1810 MDM-Treatment/Evaluation ED Course Dr. Howard requested surg consult, I did contact Dr. Forest Cochran, will consult on patient Patient Discharge Departure Vital Signs/Condition Vital Signs First Documented: Result Date Time Pulse Ox 99 12/12 1255 B/P 213/123 12/12 1255 B/P Mean 153 12/12 1255 O2 Delivery Room air 12/12 1255 Temp 37.2 03 1255 Pulse 105 12/12 1255 Resp 18 12/12 1255 Last Documented: Result Date Time Pulse Ox 99 12/12 1700 B/P 180/98 12/12 1700 B/P Mean 125 12/12 1700 O2 Delivery Room air 12/12 1700 Temp 37.2 12/12 1700 Pulse 78 12/12 1700 Resp 18 12/12 1700 All vital signs available at the time of this entry have been reviewed. Condition Stable Clinical Impression Clinical Impression Primary Impression: SUPRAPUBIC PHLEGMON Secondary Impressions: LEUKOCYTOSIS Disposition Decision Hospitalize Hosp Physician Name Buck Howard MD Request Time 165 Request Date 12/13/23 )( Accepts Hospitalization Yes )( Reason for Hospitalization phlegmon )( Accepted Time 1653 at 1811 Addendum 1: 01/18/24 1729 by Keith Beavers MD Provider Time Updates Greet Date/Time Date/Time Seen by Provider 12/13/23 1247 Disposition Admit )( Accepted Date 12/13/23 at 1729 RPT #:[id number] END OF REPORT [facility]
[2024-12-10] MEDS ORDERED: DOXYCYCLINE 100 MG CAP PO ONE (09:50)
[2024-12-10] MEDS ORDERED: KETOROLAC 30 MG/ML INJ ONE (09:50)
[2024-12-10] MEDS ORDERED: lisinopriL 20 MG TAB ONE (09:51)
--- NOTE | 2024-12-10 09:53 | EDPHYS ---
Physician Documentation [facility] Name: Jono Fernández III Age: 48 yrs Sex: Male : 1975 Arrival Date: 12/10/2024 Time: 09:19 Bed 18 Private MD: ED Physician Fede Flanagan HPI: 12/10 12:03 This 48 yrs old Black Male presents to ER via Ambulatory with complaints of Shoulder rt Pain - bump on shoulder, Cough. 12:03 Patient presents to the ED with a bump to the right side of the back over the scapula rt with redness for the past several days. Reports worsening pain to that area. Reports a mild headache, denies other acute complaints at this time, symptoms are mild in severity, no other aggravating or alleviating factors.. Historical: - Allergies: 09:41 No Known Allergies; jl7 - Home Meds: :41 None [Active]; jl7 - PMHx: 09:41 Hypertensive disorder; jl7 - PSHx: 09:41 None; jl7 - Immunization history:: Adult Immunizations unknown. - Infectious Disease History:: Denies. - Social history:: Smoking status: Patient reports the use of cigarette tobacco products, smokes one-half pack cigarettes per day. - Family history:: not pertinent. ROS: 12:03 Constitutional: Negative for fever, chills, and weight loss, Cardiovascular: Negative rt for chest pain, palpitations, and edema, Respiratory: Negative for shortness of breath, cough, wheezing, and pleuritic chest pain, Abdomen/GI: Negative for abdominal pain, nausea, vomiting, diarrhea, and constipation, 12:03 Skin: Positive for Redness, pain, Exam: 12:03 Constitutional: This is a well developed, well nourished patient who is awake, alert, rt and in no acute distress. Head/Face: Normocephalic, atraumatic. Chest/axilla: Normal chest wall appearance and motion. Nontender with no deformity. No lesions are appreciated. Cardiovascular: Regular rate and rhythm with a normal S1 and S2. No gallops, murmurs, or rubs. Normal PMI, no JVD. No pulse deficits. Respiratory: Lungs have equal breath sounds bilaterally, clear to auscultation and percussion. No rales, rhonchi or wheezes noted. No increased work of breathing, no retractions or nasal flaring. Abdomen/GI: Soft, non-tender, with normal bowel sounds. No distension or tympany. No guarding or rebound. No evidence of tenderness throughout. MS/ Extremity: Pulses equal, no cyanosis. Neurovascular intact. Full, normal range of motion. Neuro: Awake and alert, GCS 15, oriented to person, place, time, and situation. Cranial nerves II-XII grossly intact. Motor strength 5/5 in all extremities. Sensory grossly intact. Cerebellar exam normal. Normal gait. 12:03 Skin: There is about 3 cm diameter area of redness with mild induration, tenderness overlying the right scapula. Vital Signs: 09:38 BP 190 / 91; Pulse 74; Resp 17; Temp 98; Pulse Ox 97% ; Weight 149.23 kg; Height 6 ft. jl7 1 in. ; Pain 9/10; 09:38 Body Mass Index 43.41 (149.23 kg, 185.42 cm) jl7 09:38 Pain Scale: Adult jl7 MDM: 09:37 Medical Screening Exam initiated rt 12:03 Differential diagnosis: Cellulitis, abscess. Data reviewed: vital signs, nurses notes. rt Test considered but Not performed: CT: Low suspicion for intracranial hemorrhage, drainable abscess, do not believe that CT scans of the head, chest are indicated.. Care significantly affected by the following chronic conditions: Hypertension. ED course: I performed a bedside ultrasound, there is a small, less than half a centimeter fluid collection, do not believe that this is amenable to primary drainage, will start patient on oral antibiotic therapy. Patient was informed that if it worsens that it may have to be drained and that he should return if that happens. He states that he has been out of his lisinopril for many months now. Have a low suspicion for endorgan dysfunction, will start patient back on his antihypertensives, he will instructed to follow-up with primary care as an outpatient. Administered Medications: 09:54 Drug: Ketorolac IM 30 mg IM once Route: IM; Site: right deltoid; bp 09:57 Follow up: Response: No adverse reaction bp 09:54 Drug: Doxycycline PO 100 mg PO once Route: PO; bp 09:57 Follow up: Response: No adverse reaction bp 09:55 Drug: Lisinopril PO 20 mg PO once Route: PO; bp 09:57 Follow up: Response: No adverse reaction bp Disposition Summary: 12/10/24 09:52 Discharge Ordered Notes: Location: Home rt Problem: new rt Symptoms: are unchanged rt Condition: Stable rt Diagnosis - Cellulitis of back rt - Essential (primary) hypertension rt Followup: rt - With: Private Physician - When: 5 - 6 days - Reason: Discharge Instructions: - Discharge Summary Sheet rt - Cellulitis, Adult rt - Hypertension, Adult rt Forms: - Medication Reconciliation Form rt - Antibiotic Education rt - Prescription Opioid Use rt - Patient Portal Instructions rt - Leadership Thank You Letter rt Prescriptions: - Doxycycline Hyclate 100 mg Oral Tablet - take 1 tablet ORAL route every 12 hours; 20 tablet; Refills: 0, Product rt Selection Permitted - Lisinopril 20 mg Oral tablet - take 1 tablet ORAL route once daily; 30 tablet; Refills: 0, Product Selection rt Permitted Signatures: Priscilla Grayson RN RN jl7 Rowdy Osborn RN RN bp Fede Flanagan MD MD rt
--- NOTE | 2024-12-10 09:53 | ER ---
Nurse's Notes [facility] Name: Jono Fernández III Age: 48 yrs Sex: Male : 1975 Arrival Date: 12/10/2024 Time: 09:19 Bed 18 Private MD: Diagnosis: Cellulitis of back;Essential (primary) hypertension Presentation: 12/10 09:38 Chief complaint: Patient states: Bump on posterior right shoulder x 3-4 days, painful, jl7 reports LONG. Coronavirus screen: At this time, the client does not indicate any symptoms associated with coronavirus-19. Ebola Screen: No symptoms or risks identified at this time. Initial Sepsis Screen: Does the patient meet any 2 criteria? No. Patient's initial sepsis screen is negative. Does the patient have a suspected source of infection? No. Patient's initial sepsis screen is negative. Risk Assessment: Do you want to hurt yourself or someone else? Patient reports no desire to harm self or others. Onset of symptoms was December 06, 2024. 09:38 Method Of Arrival: Ambulatory [facility] 09:38 Acuity: [place] 3 jl7 09:38 Note Pt with hx of HTN, used to take Lisinopril, ERD notified. jl7 Triage Assessment: 09:41 General: Appears in no apparent distress. uncomfortable, Behavior is calm, cooperative, jl7 appropriate for age. Pain: Complains of pain in right scapular area Pain currently is 9 out of 10 on a pain scale. Pain: Complains of pain in LONG. Neuro: [place] Agitation-Sedation Scale (RASS): 0 - Alert and Calm Level of Consciousness is awake, alert, obeys commands, Oriented to person, place, time, situation. Derm: Wound noted right scapular area. Historical: - Allergies: 09:41 No Known Allergies; jl7 - Home Meds: 09:41 None [Active]; jl7 - PMHx: 09:41 Hypertensive disorder; jl7 - PSHx: 09:41 None; jl7 - Immunization history:: Adult Immunizations unknown. - Infectious Disease History:: Denies. - Social history:: Smoking status: Patient reports the use of cigarette tobacco products, smokes one-half pack cigarettes per day. - Family history:: not pertinent. Screenin:[facility] ED Fall Risk Assessment (Adult) History of falling in the last 3 months, bp including since admission No falls in past 3 months (0 pts) Confusion or Disorientation No (0 pts) Intoxicated or Sedated No (0 pts) Impaired Gait No (0 pts) Mobility Assist Device Used No (0 pt) Altered Elimination No (0 pt) Score/Fall Risk Level 0 - 2 = Low Risk Oriented to surroundings, Maintained a safe environment. Abuse screen: Denies threats or abuse. Denies injuries from another. Nutritional screening: No deficits noted. Tuberculosis screening: No symptoms or risk factors identified. Vital Signs: 09:38 BP 190 / 91; Pulse 74; Resp 17; Temp 98; Pulse Ox 97% ; Weight 149.23 kg; Height 6 ft. jl7 1 in. ; Pain 9/10; 09:38 Body Mass Index 43.41 (149.23 kg, 185.42 cm) jl7 09:38 Pain Scale: Adult [facility] ED Course: 09:28 Patient arrived in ED. im 09:28 Fede Flanagan MD is Attending Physician. rt 09:31 Rowdy Osborn, [place] is Primary Nurse. bp 09:41 Triage completed. jl7 09:41 Arm band placed on right wrist. jl7 09:55 Patient has correct armband on for positive identification. bp 09:55 No provider procedures requiring assistance completed. Patient did not have IV access bp during this emergency room visit. Administered Medications: 09:54 Drug: Ketorolac IM 30 mg IM once Route: IM; Site: right deltoid; bp 09:57 Follow up: Response: No adverse reaction bp 09:54 Drug: Doxycycline PO 100 mg PO once Route: PO; bp 09:57 Follow up: Response: No adverse reaction bp 09:55 Drug: Lisinopril PO 20 mg PO once Route: PO; bp 09:57 Follow up: Response: No adverse reaction bp Outcome: 09:52 Discharge ordered by MD. rt 09:55 Discharged to home ambulatory, bp 09:55 Condition: stable 09:55 Discharge instructions given to patient, Instructed on discharge instructions, follow up and referral plans. medication usage, Demonstrated understanding of instructions, follow-up care, medications, Prescriptions given X 2, 09:59 Patient left the ED. bp Signatures: Priscilla Grayson RN RN Rowdy Mcgovern RN RN bp [place] MD MD rt Mendoza, [place] im
[2024-12-10 10:04] VITALS: BP 190/91; TEMP 98; O2SAT 97
== END 2024-12-10 09:59 | disposition home or self-care (01) ==
LOC: ER 09:19
DX: L03.312 Cellulitis of back [any part except buttock and flank] (principal); I10 Essential (primary) hypertension; F17.210 Nicotine dependence, cigarettes, uncomplicated
CPT/HCPCS: 96372; 99284